=== PATIENT | female | born 1930 ===

== ENCOUNTER 2017-02-01 14:02 | Emergency (ER) | payer MEDICARE, OTHER ==
[2017-02-01 14:02] VITALS: BMI 20.1
[2017-02-01 14:16] VITALS: TEMP 98.1; O2SAT 98
--- NOTE | 2017-02-01 16:02 | ED PDOC ---
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 Patient states feels pain in throat and right sided neck x 10 days that is worse today and associated with dysphagia. Patient has also noted weight loss last 3 months ( 6lbs), unintentional. Patient denies fever, chills, headache, visual changes, recent illness, change in diet/meds, chest pain, sob, focal weakness, or palpitations. Patient states this morning POC was 260. PMD: Dr. Facundo Farias ([facility]) (Layton Matos) Supervising Attending Note <Layton Matos - Last Filed: 02/01/17 18:31> - Supervising Attending Note The Documented history was done by the: Physician Publication Editor, Attending Physician The documented physical exam was done by the: Physician Publication Editor, Attending Physician - Attestation: I have personally seen and examined this patient.: Yes I have fully participated in the care of the patient.: Yes I have reviewed all pertinent clinical information, including history, physical exam and plan: Yes <Natalie Li - Last Filed: 02/02/17 17:00> - Notes: Notes:: Throat pain, no infectious symptoms/signs. Physical exam unremarkable. CT with no findings to explain symptoms. Stable for dc with ENT f/u (Natalie Li) Past Medical History Reviewed: Historical Data, Nursing Documentation, Vital Signs - Medical History PMH: Bronchitis, COPD, CVA (w/residual left leg weakness), Diabetes (type II), Emphysema, HTN Denies: HIV, Chronic Kidney Disease - Surgical History Surgical History: Back Surgery, Cholecystectomy - Family History Family History: States: Unknown Family Hx - Social History Ex-Smoker (has not smoked in the last 12 months): Yes (70 pack years) Alcohol: None Drugs: Denies <Layton Matos - Last Filed: 02/01/17 18:31> <Natalie Li - Last Filed: 02/02/17 17:00> Vital Signs: Last Vital Signs Temp 98.1 F 02/01/17 18:31 Pulse 77 02/01/17 18:31 Resp 16 02/01/17 18:31 BP 135/62 02/01/17 18:31 Pulse Ox 98 02/01/17 18:31 - Home Medications Home Medications: Ambulatory Orders Medication Instructions Recorded Hydrochlorothiazide [HCTZ] 12.5 mg PO DAILY #0 capsule 02/18/15 Albuterol HFA [Ventolin HFA 90 1 puff IH Q6 PRN #0 puff 01/17/16 mcg/actuation (8 g)] Aspirin [Ecotrin] 81 mg PO DAILY #0 tabec 01/17/16 Insulin Detemir [Levemir] 12 unit SC BID #0 unit 01/17/16 Losartan [Cozaar] 25 mg PO DAILY #0 tab 01/17/16 Metformin HCl [Glucophage] 500 mg pe PO BID #0 tablet 01/17/16 Zolpidem [Ambien] 10 mg PO HS 10/10/16 Insulin Detemir [Levemir] 15 units SC BID #1 10/12/16 predniSONE [predniSONE Tab] 40 mg PO DAILY #7 tab 10/12/16 - Allergies Allergies/Adverse Reactions: Allergies Allergy/AdvReac Type Severity Reaction Status Date / Time No Known Allergies Allergy Verified 09/04/16 06:54 Review of Systems ROS Statement: Except As Marked, All Systems Reviewed And Found Negative ENT: Positive for: Mouth Pain, Throat Pain Respiratory: Positive for: Cough <Layton Matos - Last Filed: 02/01/17 18:31> Physical Exam - Reviewed Nursing Documentation Reviewed: Yes Vital Signs Reviewed: Yes - Physical Exam Appears: Positive for: Well, Non-toxic, Uncomfortable (due to pain) Head Exam: Positive for: ATRAUMATIC, NORMAL INSPECTION, NORMOCEPHALIC Skin: Positive for: Normal Color, Warm, Dry Eye Exam: Positive for: Normal appearance, EOMI ENT: Positive for: TM Is/Are (clear bilaterally), Pharyngeal Erythema, Other ( 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 Negative for: Tonsillar Exudate Neck: Positive for: Normal, Painless ROM, Supple Cardiovascular/Chest: Positive for: Regular Rate, Rhythm Respiratory: Positive for: Normal Breath Sounds Gastrointestinal/Abdominal: Positive for: Normal Exam, Bowel Sounds (normal), Soft. Negative for: Tenderness Back: Positive for: Normal Inspection Extremity: Positive for: Normal ROM. Negative for: Pedal Edema, Calf Tenderness Neurologic/Psych: Positive for: Alert, human resources receptionist II-XII, Oriented, Motor/Sensory Deficits (residual left side weakness 4/5) <Layton Matos - Last Filed: 02/01/17 18:31> - Laboratory Results Result Diagrams: 02/01/17 16:00 02/01/17 16:00 - ECG O2 Sat by Pulse Oximetry: 98 Pulse Ox Interpretation: Normal <Layton Matos - Last Filed: 02/01/17 18:31> - Laboratory Results Result Diagrams: 02/01/17 16:00 02/01/17 16:00 <Natalie Li - Last Filed: 02/02/17 17:00> - Progress ED Course And Treament: Time: 1540 Initial impression: 86 year old female with medical history of IDDM, HTN, ex- smoker (70 pack years) and 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 Plan: * CBC * CMP * POC GLUCOSE * RAPID STREP TEST * CT SOFT TISSUE NECK W/ CONTRAST * TORADOL 10MG IV * REEVAL Time: 1815 Patient's symptoms improved with Toradol. Labs reviewed, unremarkable. CT SOFT TISSUE NECK W/ CONTRAST Impression Unremarkable contrast enhanced CT of the neck. Will discharge patient home, patient to follow up with ENT and PMD this week without fail. (Layton Matos) Disposition - Patient ED Disposition Is Patient to be Admitted: No Counseled Patient/Family Regarding: Studies Performed, Diagnosis, Need For Followup - Disposition Disposition: Routine/Home Disposition Time: 18:19 - POA Present On Arrival: None <Layton Matos - Last Filed: 02/01/17 18:31> <Natalie Li - Last Filed: 02/02/17 17:00> - Clinical Impression Clinical Impression: Throat pain in adult - Disposition Referrals: Azael Luke MD [Staff Provider] - Ayden Farias MD [Family Provider] - Condition: STABLE Additional Instructions: Please follow up with ENT and PMD within week. If symptoms worsen, return to ED.
[2017-02-01 16:22] LABS: BASO % 0.7 % (0.0-2.0); EOS # 0.2 K/uL (0.0-0.7); EOS % 4.2 % (0.0-4.0); HEMATOCRIT 32.5 % (34.0-47.0); LYMPH # 1.4 K/uL (1.0-4.3); MEAN CELL VOLUME 78.9 fl (81.0-99.0); MEAN CORPUSCULAR HEMOGLOBIN 25.1 pg (27.0-31.0); MEAN CORPUSCULAR HGB CONC 31.8 g/dL (33.0-37.0); MEAN PLATELET VOLUME 10.5 fl (7.2-11.7); MONO # 0.5 K/uL (0.0-0.8); MONO % 9.1 % (0.0-10.0); NEUT # 3.6 K/uL (1.8-7.0); NRBC % 0.1 % (0.0-0.0); RED CELL DISTRIBUTION WIDTH 18.1 % (11.5-14.5); WHITE BLOOD COUNT 5.8 K/uL (4.8-10.8)
[2017-02-01] MEDS ORDERED: Iohexol 300 100 ML IJ ONE (16:37)
[2017-02-01] MEDS ORDERED: Sodium Chloride 0.9% 50 ML IV ONE (16:37)
[2017-02-01 16:40] LABS: ALKALINE PHOSPHATASE 116 U/L (38-126); ALT/SGPT 31 U/L (9-52); AST/SGOT 47 U/L (14-36); BILIRUBIN,TOTAL 0.6 mg/dl (0.2-1.3); BLOOD UREA NITROGEN 23 mg/dl (7-17); CALCIUM 9.6 mg/dL (8.4-10.2); CARBON DIOXIDE 28 mmol/L (22-30); CHLORIDE 105 mmol/L (98-107); GFR AFRICAN-AMERICAN > 60; GLUCOSE,RANDOM 218 mg/dL (65-105); POTASSIUM 4.9 MMOL/L (3.6-5.0); SODIUM 142 mmol/l (132-148); TOTAL PROTEIN 7.7 G/DL (6.3-8.2)
--- NOTE | 2017-02-01 17:39 | CT ---
PROCEDURE: CT NECK WITH CONTRAST HISTORY: throat pain diabetic r/o umu COMPARISON: None TECHNIQUE: CT of the neck with intravenous contrast. Coronal and sagittal reformats generated. Intravenous contrast dose: 100 cc of Omnipaque 300 Radiation dose: DLP 372 mGy-cm This CT exam was performed using one or more of the following dose reduction techniques: Automated exposure control, adjustment of the mA and/or kV according to patient size, and/or use of iterative reconstruction technique. FINDINGS: NASOPHARYNX: Unremarkable. SUPRAHYOID NECK: Unremarkable oropharynx, oral cavity, parapharyngeal space and retropharyngeal space. INFRAHYOID NECK: Unremarkable larynx, hypopharynx, and supraglottic space. Vocal cords intact. MASS: None. GLANDS: Parotid and submandibular glands unremarkable. Normal size thyroid gland, without nodule. LYMPH NODES: Normal. No lymphadenopathy. CERVICAL SPINE: No fracture or focal lesion. VASCULAR STRUCTURES: Unremarkable. OTHER FINDINGS: None. IMPRESSION: Unremarkable contrast enhanced CT of the neck.
[2017-02-01 18:32] VITALS: BP 135/62; PULSE 77; RESP 16
== END 2017-02-01 18:31 | disposition home or self-care (01) ==
LOC: H.ER 14:02
DX: R07.0 Pain in throat (principal); E11.9 Type 2 diabetes mellitus without complications; I10 Essential (primary) hypertension; Z79.4 Long term (current) use of insulin; Z86.73 Personal history of transient ischemic attack (TIA), and cerebral infarction without residual deficits; J44.9 Chronic obstructive pulmonary disease, unspecified; Z79.82 Long term (current) use of aspirin
CPT/HCPCS: 70491; 80053; 82948; 85025; 87070; 87430; 96374; 99282; J1885; Q9967

== ENCOUNTER 2017-10-02 12:33 | Emergency (ER) | payer MEDICARE, OTHER ==
[2017-10-02 12:33] VITALS: BMI 20.1
--- NOTE | 2017-10-02 13:33 | ED PDOC ---
HPI: Trauma/Fall - HPI Chief Complaint (Nursing): Hip Pain Chief Complaint (Provider): Hip Pain History Per: Patient, Other (Home Health Aide) History/Exam Limitations: no limitations Onset/Duration Of Symptoms: Days (x 2) Additional Complaint(s): 87 year old female with history of stroke (left sided residual weakeness; uses walker) and diabetes presents to the ED complaining of left hip and back pain, onset 2 days ago s/p fall. According the pt's home health aide and patient she fell two days ago and is experiencing low back pain and left hip pain. Patient states that she just missed her step. She able to walk with her walker but a lot less because of the pain. She denies any lightheadedness or dizziness. No chestpain or sob. No urinary complaints. No cough. PMD: Dr. Drew Day MD Past Medical History Reviewed: Historical Data, Nursing Documentation, Vital Signs Vital Signs: Last Vital Signs Temp 98 F 10/02/17 16:29 Pulse 78 10/02/17 16:29 Resp 18 10/02/17 16:29 BP 140/80 10/02/17 16:29 Pulse Ox 99 10/02/17 16:29 - Medical History PMH: Bronchitis, COPD, CVA (w/residual left leg weakness), Diabetes (type II), Emphysema, HTN Denies: HIV, Chronic Kidney Disease - Surgical History Surgical History: Back Surgery, Cholecystectomy - Family History Family History: States: Unknown Family Hx - Home Medications Home Medications: Ambulatory Orders Medication Instructions Recorded Albuterol HFA [Ventolin HFA 90 1 puff IH PRN PRN 10/02/17 mcg/actuation (8 g)] Aspirin [Ecotrin] 81 mg PO DAILY 10/02/17 Hydrochlorothiazide [Microzide] 12.5 mg PO DAILY 10/02/17 Ibuprofen [Motrin] 400 mg PO Q6 PRN #20 tab 10/02/17 Insulin Detemir [Levemir] 12 units SQ DAILY 10/02/17 Losartan Potassium 50 mg PO BID 10/02/17 Nifedipine [Adalat cc] 30 mg PO DAILY 10/02/17 Omeprazole Magnesium [Prilosec] 10 mg PO DAILY 10/02/17 Rosuvastatin Calcium [Crestor] 5 mg PO HS 10/02/17 Sitagliptin Phos/Metformin HCl 1 each PO BID 10/02/17 [Janumet 50-1,000 mg Tablet] Tramadol HCl [Ultram] 50 mg PO PRN PRN 10/02/17 - Allergies Allergies/Adverse Reactions: Allergies Allergy/AdvReac Type Severity Reaction Status Date / Time No Known Allergies Allergy Verified 10/02/17 12:34 Review of Systems ROS Statement: Except As Marked, All Systems Reviewed And Found Negative Musculoskeletal: Positive for: Back Pain (lower lumbar ), Other (left hip pain) Neurological: Positive for: Weakness (left sided which is chronic and not worsened) Physical Exam - Reviewed Nursing Documentation Reviewed: Yes Vital Signs Reviewed: Yes - Physical Exam Appears: Positive for: Non-toxic, No Acute Distress Head Exam: Positive for: ATRAUMATIC, NORMOCEPHALIC Skin: Positive for: Normal Color, Warm, Dry Eye Exam: Positive for: EOMI, Normal appearance, PERRL Neck: Positive for: Normal, Painless ROM, Supple Cardiovascular/Chest: Positive for: Regular Rate, Rhythm. Negative for: Murmur Respiratory: Positive for: Normal Breath Sounds. Negative for: Wheezing Gastrointestinal/Abdominal: Positive for: Normal Exam, Soft Back: Positive for: Other (left paraspinal and mid lower back tenderness) Extremity: Positive for: Other (Left sided hip tenderness with palpation and pain range of motion) Neurologic/Psych: Positive for: Alert, line patroller II-XII. Negative for: Motor/Sensory Deficits, Facial Droop - Laboratory Results Result Diagrams: 10/02/17 13:25 10/02/17 13:25 - ECG O2 Sat by Pulse Oximetry: 100 (RA) Pulse Ox Interpretation: Normal Medical Decision Making Medical Decision Making: Time: 13:01 Initial Plan: 87 yo female c/o left hip and back pain s/p fall r/o fracture --Ct head w/o contrast --Ct lumbar spine --Ct pelvis --BMP --CBC --PTT --Prothrombin time --Tylenol 975 mg PO --Finger stick Time: 14:[address] IMPRESSION: No acute intracranial abnormalities. No significant findings to account for the clinical presentation. No significant interval change compared to the prior examination(s). Time: 14:54 CT Abd Pelvis IMPRESSION: No acute findings related to/accounting for the clinical presentation. Time: 14:54 CT Lumbar Spine IMPRESSION: No acute findings related to/accounting for the clinical presentation. Additional benign and/or incidental findings described above. Limitations of the current examination: Streak artifact related to hardware from prior laminectomy and fusion L3-L5 levels. Time: 15:10 --Patient is still in pain and given Toradol. Time: 15:41 Patient is able to get up and walk with assistance from nurse and walker. Pain is improved. UA is negative for UTI. She was offered admission for physical therapy if she felt like she needed but she wants to go home. Patient has capacity to make decisions. Discussed with her PMD, Dr. Day who agreed to follow up with her promptly. She will be discharged home. [facility] is aware and she will make sure she has followup. Scribe Attestation: Documented by Montse Reno, acting as a scribe for Yobany Barber DO Provider Scribe Attestation: All medical record entries made by the Scribe were at my direction and personally dictated by me. I have reviewed the chart and agree that the record accurately reflects my personal performance of the history, physical exam, medical decision making, and the department course for this patient. I have also personally directed, reviewed, and agree with the discharge instructions and disposition. Disposition - Clinical Impression Clinical Impression: Hip pain, Contusion of hip, Fall - Patient ED Disposition Is Patient to be Admitted: No - Disposition Referrals: Drew Day MD [Family Provider] - Disposition: Routine/Home Disposition Time: 15:40 Condition: IMPROVED Additional Instructions: Ms Flores, thank you for letting us take care of you today. Your provider was Dr. Barber. You were treated for Mechanical Fall, Hip Contusion, Back Pain. The emergency medical care you received today was directed at your acute symptoms. If you were prescribed any medication, please fill it and take as directed. It may take several days for your symptoms to resolve. Return to the Emergency Department if your symptoms worsen, do not improve, or if you have any other problems. Please contact your doctor or call one of the physicians/clinics you have been referred to that are listed on the Patient Visit Information form that is included in your discharge packet. Bring any paperwork you were given at discharge with you along with any medications you are taking to your follow up visit. Our treatment cannot replace ongoing medical care by a primary care provider (PCP) outside of the emergency department. Thank you for allowing the [facility] team to be part of your care today. If you had an X-Ray or CT scan: A Radiologist will review the ED reading if any change in treatment is needed we will contact you. If you had a blood, urine, or wound culture: It will take several days for the results, if any change in treatment is needed we will contact you. If you had an STI test: It will take 48 hours for the results. Please call after 1 week if you have not heard back. Prescriptions: Ibuprofen [Motrin] 400 mg PO Q6 PRN #20 tab PRN Reason: Pain, Mild (1-3) Instructions: Fall Prevention for Older Adults (ED), Back Pain (ED), Hip Contusion (ED) Forms: [employer] (Swiss) Print Language: HONG KONGER
[2017-10-02 13:41] LABS: HEMOGLOBIN 10.6 g/dL (12.0-16.0); MEAN CELL VOLUME 77.3 fl (81.0-99.0); MEAN CORPUSCULAR HEMOGLOBIN 24.3 pg (27.0-31.0); MEAN CORPUSCULAR HGB CONC 31.4 g/dL (33.0-37.0); RBC 4.35 Mil/uL (3.80-5.20); RED CELL DISTRIBUTION WIDTH 17.7 % (11.5-14.5); WHITE BLOOD COUNT 6.2 K/uL (4.8-10.8)
[2017-10-02 13:55] LABS: BLOOD UREA NITROGEN 12 mg/dl (7-17); CALCIUM 9.5 mg/dL (8.4-10.2); GFR AFRICAN-AMERICAN > 60; GFR NON-AFRICAN AMERICAN > 60
[2017-10-02 14:26] LABS: INR 1.1 (0.9-1.2); PROTHROMBIN TIME 11.7 Seconds (9.8-13.1)
--- NOTE | 2017-10-02 14:49 | CT ---
PROCEDURE: CT HEAD WITHOUT CONTRAST. HISTORY: fall r/o ich COMPARISON: 10/10/2016 TECHNIQUE: Axial computed tomography images were obtained through the head/brain without intravenous contrast. Radiation dose: Total exam DLP = 770.03 mGy-cm. This CT exam was performed using one or more of the following dose reduction techniques: Automated exposure control, adjustment of the mA and/or kV according to patient size, and/or use of iterative reconstruction technique. FINDINGS: HEMORRHAGE: No intracranial hemorrhage. BRAIN: No mass effect or edema. Age related senescent change VENTRICLES: Unremarkable. No hydrocephalus. CALVARIUM: Unremarkable. PARANASAL SINUSES: Unremarkable as visualized. No significant inflammatory changes. MASTOID AIR CELLS: Unremarkable as visualized. No inflammatory changes. OTHER FINDINGS: None. IMPRESSION: No acute intracranial abnormalities. No significant findings to account for the clinical presentation. No significant interval change compared to the prior examination(s).
--- NOTE | 2017-10-02 14:53 | CT ---
PROCEDURE: CT Lumbar Spine without contrast HISTORY: fall with back pain r/o fx COMPARISON: None. TECHNIQUE: Axial computed tomography images were obtained of the lumbar spine without the use of intravenous contrast. Coronal and sagittal reformatted images were created and reviewed. 3D volume rendering in multiple orientations. Radiation dose: Total exam DLP = sign mGy-cm. This CT exam was performed using one or more of the following dose reduction techniques: Automated exposure control, adjustment of the mA and/or kV according to patient size, and/or use of iterative reconstruction technique. FINDINGS: VERTEBRAE: No acute fracture identified. No evidence of orthopedic hardware failure. This includes interpedicular screws and rods related to prior laminectomy and fusion. Limitations of the current examination: Artifact related to metallic hardware. DISCS/SPINAL CANAL/NEURAL FORAMINA: L1-2: Unremarkable. L2-3: Degenerative changes primarily disc space narrowing and vacuum disc phenomenon. L3-4: Incompletely visualized postoperative changes related to fusion. L4-5: Degenerative changes and postoperative findings L5-S1: Unremarkable. PARASPINAL SOFT TISSUES: No acute findings. OTHER FINDINGS: None. IMPRESSION: No acute findings related to/accounting for the clinical presentation. Additional benign and/or incidental findings described above. Limitations of the current examination: Streak artifact related to hardware from prior laminectomy and fusion L3-L5 levels.
--- NOTE | 2017-10-02 14:56 | CT ---
PROCEDURE: CT Pelvis without contrast HISTORY: fall with left hip pain r/o fx COMPARISON: None. TECHNIQUE: Contiguous axial images of the pelvis . No intravenous or oral contrast given. Coronal and sagittal reformats generated. 3D volume rendering in multiple orientations. Radiation dose: Total exam DLP = 148.02 mGy-cm. This CT exam was performed using one or more of the following dose reduction techniques: Automated exposure control, adjustment of the mA and/or kV according to patient size, and/or use of iterative reconstruction technique. FINDINGS: BLADDER: Unremarkable. No mass. REPRODUCTIVE ORGANS: Prior hysterectomy VISUALIZED BOWEL: Constipation without fecal impaction or obstruction. PERITONEUM: Unremarkable, as visualized. No free fluid. No free air. LYMPH NODES: Unremarkable. No enlarged lymph nodes. BONES: Diffuse osteopenia. Degenerative changes both hips which are moderate and approximately symmetrical. VASCULATURE: Unremarkable. OTHER FINDINGS: None. IMPRESSION: No acute findings related to/accounting for the clinical presentation.
[2017-10-02 16:29] VITALS: BP 140/80; PULSE 78; RESP 18; TEMP 98
[2017-10-02 16:50] VITALS: O2SAT 100
== END 2017-10-02 16:32 | disposition home or self-care (01) ==
LOC: H.ER 12:33
DX: S70.02XA Contusion of left hip, initial encounter (principal); W19.XXXA Unspecified fall, initial encounter; Y92.89 Other specified places as the place of occurrence of the external cause; E11.9 Type 2 diabetes mellitus without complications; I10 Essential (primary) hypertension; J44.9 Chronic obstructive pulmonary disease, unspecified; Z79.4 Long term (current) use of insulin; Z79.82 Long term (current) use of aspirin; Z86.73 Personal history of transient ischemic attack (TIA), and cerebral infarction without residual deficits
CPT/HCPCS: 70450; 72131; 72192; 80048; 82948; 85027; 85610; 85730; 96374; 99284; J1885

== ENCOUNTER 2018-06-18 13:59 | Observation (INO) | payer MEDICARE, OTHER ==
[2018-06-18 14:00] VITALS: BMI 20.1
[2018-06-18] MEDS ORDERED: Albuterol-Ipratrop 3 mg / 0.5 (3 ml) UD INH STA ×2 (14:58→17:16)
--- NOTE | 2018-06-18 15:05 | ED PDOC ---
HPI: SOB/CHF/COPD Time Seen by Provider: 06/18/18 14:24 Chief Complaint (Nursing): Shortness Of Breath Chief Complaint (Provider): cough SOB History Per: Patient History/Exam Limitations: no limitations Onset/Duration Of Symptoms: Days (4), Gradual Current Symptoms Are (Timing): Still Present Initiating Event: Upper Respiratory Illness Quality: Tightness Exacerbating Factor(s): Exertion Current Respiratory Medications: Albuterol Severity: Moderate Associated Symptoms: Productive Cough, Heart Racing, Dizziness. denies: Fever, Chills Additional Complaint(s): 87yo female presents c/o SOB, cough, malaise ongoing for several days. Denies hemoptysis, leg swelling, falls or fever. Using albuterol at home with minimal relief. PMD Shay Past Medical History Vital Signs: Last Vital Signs Temp 98.9 F 06/18/18 19:33 Pulse 94 H 06/18/18 19:33 Resp 18 06/18/18 19:33 BP 163/88 H 06/18/18 19:33 Pulse Ox 96 06/18/18 19:33 - Medical History PMH: Bronchitis, COPD, CVA (w/residual left leg weakness), Diabetes (type II), Emphysema, HTN Denies: HIV, Chronic Kidney Disease - Surgical History Surgical History: Back Surgery, Cholecystectomy - Family History Family History: States: Unknown Family Hx - Living Arrangements Living Arrangements: Alone - Social History Current smoker - smoking cessation education provided: No - Home Medications Home Medications: Ambulatory Orders Medication Instructions Recorded Albuterol HFA [Ventolin HFA 90 2 puff IH Q6 PRN 10/02/17 mcg/actuation (8 g)] Aspirin [Ecotrin] 81 mg PO DAILY 10/02/17 Insulin Detemir [Levemir] 10 units SQ DAILY 10/02/17 Losartan Potassium 50 mg PO DAILY 10/02/17 Rosuvastatin Calcium [Crestor] 5 mg PO HS 10/02/17 Sitagliptin Phos/Metformin HCl 1 tab PO BID 10/02/17 [Janumet 50-1,000 mg Tablet] Docusate [Colace] 100 mg PO BID 06/18/18 Meloxicam [Mobic] 7.5 mg PO DAILY PRN 06/18/18 Omeprazole [Omeprazole] 20 mg PO DAILY 06/18/18 Pioglitazone [Actos] 30 mg PO DAILY 06/18/18 Zolpidem [Ambien] 10 mg PO HS 06/18/18 - Allergies Allergies/Adverse Reactions: Allergies Allergy/AdvReac Type Severity Reaction Status Date / Time No Known Allergies Allergy Verified 06/18/18 14:13 Review of Systems Constitutional: Positive for: Weakness, Malaise. Negative for: Fever ENT: Negative for: Ear Pain, Throat Pain Cardiovascular: Positive for: Palpitations, Orthopnea Respiratory: Positive for: Cough, Shortness of Breath, SOB with Exertion, Sputum , Wheezing Gastrointestinal: Negative for: Abdominal Pain Genitourinary Female: Negative for: Dysuria Musculoskeletal: Positive for: Back Pain. Negative for: Neck Pain Skin: Negative for: Rash, Lesions Neurological: Positive for: Dizziness. Negative for: Weakness Physical Exam - Physical Exam Appears: Positive for: Non-toxic (elderly, dyspneic), No Acute Distress Head Exam: Positive for: ATRAUMATIC, NORMAL INSPECTION, NORMOCEPHALIC Skin: Positive for: Normal Color, Warm, DRY Eye Exam: Positive for: EOMI, Normal appearance, PERRL ENT: Positive for: Normal ENT Inspection Neck: Positive for: Normal, Painless ROM Cardiovascular/Chest: Positive for: Regular Rate, Rhythm Respiratory: Positive for: Decreased Breath Sounds, Wheezing Gastrointestinal/Abdominal: Positive for: Soft. Negative for: Tenderness Back: Positive for: Normal Inspection Extremity: Positive for: Normal ROM Neurologic/Psych: Positive for: Alert, Oriented. Negative for: Motor/Sensory Deficits - Laboratory Results Result Diagrams: 06/18/18 16:12 06/18/18 16:12 - ECG O2 Sat by Pulse Oximetry: 95 Medical Decision Making Medical Decision Making: workup for dyspnea initiated labs and CXR reviewed multiple duonebs given, solumedrol, remains w diminished BS and dyspnea Azithromycin initiated given productive cough and dyspnea Admit obs dr soto, dr ordoñez PMD made aware Disposition - Clinical Impression Clinical Impression: Chr obstructive pulmonary disease w/ acute lower respiratory infxn - Patient ED Disposition Is Patient to be Admitted: Yes - Disposition Disposition Time: 17:40 Condition: FAIR - Pt Status Changed To: Hospital Disposition Of: Observation - POA Present On Arrival: None
[2018-06-18] MEDS ORDERED: MethylPREDNISolone 40 mg Vial ONE (16:12)
[2018-06-18] MEDS ORDERED: Albuterol-Ipratrop 3 mg / 0.5 (3 ml) UD ONE ×2 (16:13→18:08)
--- NOTE | 2018-06-18 16:15 | RAD ---
HISTORY: Cough and shortness of breath COMPARISON: 08/22/2016. TECHNIQUE: Chest PA and lateral FINDINGS: LINES AND TUBES: None. LUNG AND PLEURA: The lungs are hyperinflated and there is peribronchial thickening with chronic changes in both lungs. No lobar pneumonia. No pleural effusion or pneumothorax. HEART AND MEDIASTINUM: The heart is not enlarged. There is unfolding of the aorta. Atherosclerotic aortic arch calcifications are present. The hilar and mediastinal contours are within normal limits. SKELETAL STRUCTURES: The bony structures are within normal limits for the patient's age. VISUALIZED UPPER ABDOMEN: Normal. OTHER FINDINGS: None. IMPRESSION: No active pulmonary disease. COPD.
[2018-06-18 16:34] LABS: BASO % 0.2 % (0.0-2.0); EOS # 0.2 K/uL (0.0-0.7); EOS % 2.9 % (0.0-4.0); HEMOGLOBIN 10.6 g/dL (12.0-16.0); LYMPH # 1.2 K/uL (1.0-4.3); LYMPH % 17.4 % (20.0-40.0); MEAN CELL VOLUME 78.1 fl (81.0-99.0); MEAN CORPUSCULAR HEMOGLOBIN 24.5 pg (27.0-31.0); MEAN CORPUSCULAR HGB CONC 31.4 g/dL (33.0-37.0); MEAN PLATELET VOLUME 9.6 fl (7.2-11.7); MONO # 0.5 K/uL (0.0-0.8); NEUT # 4.8 K/uL (1.8-7.0); NEUT % 71.5 % (50.0-75.0); NRBC % 0.1 % (0.0-0.0); RBC 4.33 Mil/uL (3.80-5.20); RED CELL DISTRIBUTION WIDTH 18.7 % (11.5-14.5); WHITE BLOOD COUNT 6.7 K/uL (4.8-10.8)
[2018-06-18 17:10] LABS: ALBUMIN 4.2 g/dL (3.5-5.0); ALT/SGPT 13 U/L (9-52); AST/SGOT 28 U/L (14-36); BLOOD UREA NITROGEN 20 mg/dl (7-17); GFR NON-AFRICAN AMERICAN 52
[2018-06-18] MEDS ORDERED: Azithromycin 500 MG in Sodium Chloride 0.9% 250 ML IVPB STA (17:18)
[2018-06-18 17:19] LABS: B-TYPE NATRIURETIC PEPTIDE 779 pg/ml (0-900)
[2018-06-18 17:32] LABS: URINE BACTERIA OCC (<OCC); URINE BILIRUBIN NEGATIVE (NEGATIVE); URINE BLOOD SMALL (NEGATIVE); URINE CLARITY CLEAR (Clear); URINE COLOR STRAW (YELLOW); URINE GLUCOSE (UA) NEG (Normal); URINE LEUKOCYTE ESTERASE NEG Leu/uL (Negative); URINE PROTEIN 100 mg/dL (NEGATIVE); URINE UROBILINOGEN 0.2-1.0 mg/dL (0.2-1.0)
[2018-06-18 17:38] LABS: SQUAMOUS EPITHIAL 4 /hpf (0-5)
[2018-06-18] MEDS ORDERED: Azithromycin 500 MG IV IVPB ONE (18:08)
--- NOTE | 2018-06-18 18:27 | CP.PCM.HP ---
History of Present Illness - History of Present Illness History of Present Illness: CC: Cough, dyspnea HPI: 87 y/o woman w/ pmh of HTN, DM2, COPD (emphysema), Hx CVA (residual left leg weakness) presents to the ED w/ dyspnea and cough. Patient reports cough for the past 3-4 days, productive of white sputum, about 1/2 cup of white sputum. Patient reports dyspnea this morning at rest which she attributes to nausea. Patient denies headaches, chest pain, hemoptysis, vomiting, diarrhea, or fever. Patient reports chronic GERD relieved w/ PPI. Patient has home health aid 7 days a week for 5 hours a day. Patient's emergency contact is [facility]. ED course: vitals: 98F, 84 beats/min, 162/72 mm Hg, resp 20, O2 95% room air CBC: 6.7>10.6/33.8<247 CMP: 139/4.7, 103/30, 20/1.0, glucose 151, AST 28, ALT 13, alk phos 84 troponin: 0.0200 Pro-BNP: 779 CXR: COPD, emphysema. No active pulmonary disease duoneb x2 solu-medrol 60 mg IV azithromycin 500 mg IV PMD: Dr. Day PMH: HTN, DM2, COPD (emphysema), Hx CVA (residual left leg weakness) meds: Janumet 50-1000 mg PO BID, pioglitazone 30 mg PO daily, losartan 50 mg PO daily, ASA 81 mg PO daily, colace 100 mg PO daily, omeprazole 20 mg PO daily, meloxicam 7.5 mg PO prn, ventolin PSH: cholecystectomy, 1/2 left ovary removed in childhood Fam: non-contributory SOC: former smoker, quit 7 months ago, smoked 1/2 pack to 1 pack per day for 70 years; denies alcohol and drugs ROS: 12 points assessed and negative unless otherwise reported in HPI Present on Admission - Present on Admission Any Indicators Present on Admission: Yes History of DVT/PE: No History of Uncontrolled Diabetes: Yes Urinary Catheter: No Decubitus Ulcer Present: No Review of Systems - Review of Systems All systems: reviewed and no additional remarkable complaints except - Constitutional Constitutional: absent: Chills, Fever, Headache - EENT Eyes: absent: Change in Vision - Cardiovascular Cardiovascular: absent: Chest Pain - Respiratory Respiratory: As Per HPI, Cough, Dyspnea, Excessive Mucous Production. absent: Hemoptysis, Wheezing - Gastrointestinal Gastrointestinal: Nausea. absent: Abdominal Pain, Diarrhea, Vomiting - Genitourinary Genitourinary: absent: Dysuria - Reproductive: Female Reproductive:Female: Post Menopausal - Menstruation Menstruation: Post Menopausal - Integumentary Integumentary: absent: Rash Past Patient History - Tetanus Immunizations Tetanus Immunization: Unknown - Past Medical History & Family History Past Medical History?: Yes - Past Social History Smoking Status: Former Smoker - CARDIAC Hx Hypertension: Yes - PULMONARY Hx Bronchitis: Yes Hx Chronic Obstructive Pulmonary Disease (COPD): Yes Hx Pneumonia: Yes - NEUROLOGICAL Hx Neurological Disorder: Yes HX Cerebrovascular Accident: Yes (RESIDUAL L SIDED WEAKNESS) - HEENT Hx Cataracts: Yes - RENAL Hx Chronic Kidney Disease: No - ENDOCRINE/METABOLIC Hx Endocrine Disorders: Yes Hx Diabetes Mellitus Type 2: Yes - HEMATOLOGICAL/ONCOLOGICAL Hx Blood Disorders: No - INTEGUMENTARY Hx Dermatological Problems: No - MUSCULOSKELETAL/RHEUMATOLOGICAL Hx Musculoskeletal Disorders: Yes Hx Falls: Yes - GASTROINTESTINAL Hx Gastrointestinal Disorders: No - GENITOURINARY/GYNECOLOGICAL Hx Genitourinary Disorders: No - PSYCHIATRIC Hx Psychophysiologic Disorder: No Hx Substance Use: No - SURGICAL HISTORY Hx Appendectomy: Yes Hx Cholecystectomy: Yes - ANESTHESIA Hx Anesthesia: Yes Hx Anesthesia Reactions: No Hx Malignant Hyperthermia: No Meds Allergies/Adverse Reactions: Allergies Allergy/AdvReac Type Severity Reaction Status Date / Time No Known Allergies Allergy Verified 06/18/18 14:13 Physical Exam - Constitutional Appears: Non-toxic, No Acute Distress - Head Exam Head Exam: ATRAUMATIC, NORMAL INSPECTION, NORMOCEPHALIC - Eye Exam Eye Exam: Normal appearance - ENT Exam ENT Exam: Mucous Membranes Moist - Neck Exam Neck exam: Positive for: Full Rom. Negative for: Tenderness - Respiratory Exam Respiratory Exam: Decreased Breath Sounds. absent: Rales, Rhonchi, Wheezes, Respiratory Distress - Cardiovascular Exam Cardiovascular Exam: REGULAR RHYTHM, RRR, +S1, +S2. absent: Tachycardia - GI/Abdominal Exam GI & Abdominal Exam: Normal Bowel Sounds, Soft, Tenderness (epigastric). absent : Distended - Extremities Exam Extremities exam: Positive for: normal inspection. Negative for: calf tenderness, pedal edema, tenderness - Neurological Exam Neurological exam: Alert, Oriented x3 - Skin Skin Exam: Dry, Intact, Normal Color, Warm Results - Vital Signs Recent Vital Signs: Last Vital Signs Temp 98 F 06/18/18 14:10 Pulse 84 06/18/18 14:10 Resp 20 06/18/18 15:37 BP 162/72 H 06/18/18 14:10 Pulse Ox 95 06/18/18 15:05 - Labs Result Diagrams: 06/18/18 16:12 06/18/18 16:12 Labs: Laboratory Results - last 24 hr 06/18/18 06/18/18 06/18/18 16:12 16:12 17:18 WBC 6.7 RBC 4.33 Hgb 10.6 L Hct 33.8 L MCV 78.1 L MCH 24.5 L MCHC 31.4 L RDW 18.7 H Plt Count 247 MPV 9.6 Neut % (Auto) 71.5 Lymph % (Auto) 17.4 L [place] % (Auto) 8.0 Eos % (Auto) 2.9 Baso % (Auto) 0.2 Neut # (Auto) 4.8 Lymph # (Auto) 1.2 [place] # (Auto) 0.5 Eos # (Auto) 0.2 Baso # (Auto) 0.0 Sodium 139 Potassium 4.7 Chloride 103 Carbon Dioxide 30 Anion Gap 11 BUN 20 H Creatinine 1.0 Est GFR ( Amer) > 60 Est GFR (Non-Af Amer) 52 Random Glucose 151 H Calcium 10.0 Total Bilirubin 0.3 AST 28 ALT 13 Alkaline Phosphatase 84 Troponin I 0.0200 NT-Pro-B Natriuret Pep 779 Total Protein 8.2 Albumin 4.2 Globulin 4.0 H Albumin/Globulin Ratio 1.0 Urine Color Straw Urine Clarity Clear Urine pH 6.0 Ur Specific [place] 1.008 Urine Protein 100 Urine Glucose (UA) Neg Urine Ketones Negative Urine Blood Small Urine Nitrate Negative Urine Bilirubin Negative Urine Urobilinogen 0.2-1.0 Ur Leukocyte Esterase Neg Urine RBC (Auto) 5 H Urine Microscopic WBC 2 Ur Squamous Epith Cells 4 Urine Bacteria Occ H Assessment & Plan (1) COPD exacerbation Status: Acute (2) Diabetes mellitus Status: Chronic (3) HTN (hypertension) Status: Chronic (4) GERD (gastroesophageal reflux disease) Status: Chronic - Assessment and Plan (Free Text) Assessment: 87 y/o woman w/ pmh of HTN, DM2, COPD (emphysema), Hx CVA (residual left leg weakness) presents to the ED w/ dyspnea and cough Plan: COPD exacerbation - possible acute bronchitis due to sputum production - patient reports marked improvement - vitals signs stable, 98F, 84 beats/min, 162/72 mm Hg, resp 20, O2 95% room air - CBC: 6.7>10.6/33.8<247 - CMP: 139/4.7, 103/30, 20/1.0, glucose 151, AST 28, ALT 13, alk phos 84 - troponin: 0.0200 - Pro-BNP: 779 - CXR: COPD, emphysema. No active pulmonary disease - duoneb x2 - solu-medrol 60 mg IV - azithromycin 500 mg IV - f/u CBC, CMP - duoneb Q4h prn - c/w venotlin prn - monitor for acute changes - admit to [facility] DM2 - last HbA1c 8.9% (10/16/2016) - c/w levemir 10 units SC HS, yasminet, actos - insulin correction scale - hypoglycemic protocol HTN - mildly elevated BP - c/w losartan, ASA GERD - chronic - protonix 20 mg PO daily Prophylactic measures - DVT: lovenox 40 mg SC daily
[2018-06-18] MEDS ORDERED: Albuterol HFA 90 mcg/actuation (8 g) IH PRN (18:30)
[2018-06-18] MEDS ORDERED: Glucagon Recombinant 1 mg Inj IM PRN (18:34)
[2018-06-18] MEDS ORDERED: Dextrose 50% SYRINGE Inj (50 ml) IV PRN (18:34)
[2018-06-18] MEDS ORDERED: Albuterol-Ipratrop 3 mg / 0.5 (3 ml) UD INH PRN (18:43)
[2018-06-18] MEDS ORDERED: Insulin Detemir 100 Units/ml Inj SC SCH (22:00)
[2018-06-18] MEDS: Insulin Lispro (humaLOG) 100 Units/ml Inj SC SCH (22:16)
[2018-06-18 23:52] VITALS: TEMP 98.7
[2018-06-19 07:05] LABS: BASO % 0.2 % (0.0-2.0); EOS % 0.1 % (0.0-4.0); HEMOGLOBIN 9.3 g/dL (12.0-16.0); LYMPH # 1.2 K/uL (1.0-4.3); LYMPH % 19.7 % (20.0-40.0); MEAN CORPUSCULAR HEMOGLOBIN 25.1 pg (27.0-31.0); MEAN CORPUSCULAR HGB CONC 32.5 g/dL (33.0-37.0); MEAN PLATELET VOLUME 9.6 fl (7.2-11.7); MONO # 0.5 K/uL (0.0-0.8); NEUT # 4.2 K/uL (1.8-7.0); RBC 3.73 Mil/uL (3.80-5.20); RED CELL DISTRIBUTION WIDTH 18.6 % (11.5-14.5)
[2018-06-19] MEDS: Insulin Lispro (humaLOG) 100 Units/ml Inj SC SCH ×2 (07:11→12:13)
[2018-06-19 07:27] LABS: ALBUMIN 3.7 g/dL (3.5-5.0); ALT/SGPT 26 U/L (9-52); AST/SGOT 21 U/L (14-36); BLOOD UREA NITROGEN 23 mg/dl (7-17); CALCIUM 9.8 mg/dL (8.4-10.2); GFR NON-AFRICAN AMERICAN 59
--- NOTE | 2018-06-19 07:56 | CARD ---
APPROVED REPORT Date of service: 06/18/2018 EKG Measurement Heart [id number] <Conclusion> Sinus rhythm with premature atrial complexes Otherwise normal ECG
[2018-06-19] MEDS ORDERED: Pantoprazole 20 mg EC Tab PO SCH (09:00)
[2018-06-19] MEDS ORDERED: Enoxaparin 40 mg Syringe SC SCH (09:00)
[2018-06-19] MEDS ORDERED: Patient's Own Med (Sitagliptin Phos/Metformin Hcl [Janumet 50-1,000 Mg Tablet] 1 TAB) PO SCH (09:00)
[2018-06-19] MEDS ORDERED: Azithromycin 250 MG in Sodium Chloride 0.9% 250 ML IVPB SCH (09:00)
--- NOTE | 2018-06-19 11:18 | CP.PCM.DIS ---
Provider - Provider Date of Admission: 06/18/18 17:24 Attending physician: Rosie Toledo MD Primary care physician: Drew Dya MD Time Spent in preparation of Discharge (in minutes): 30 Diagnosis - Discharge Diagnosis (1) COPD exacerbation Status: Acute Comment: Improved after hosp treatment. To c/w home meds and f/u as outpatient with PMD (2) Anemia Status: Chronic Comment: Stable. Chronic iron deficiency anemia. Iron PO and Colonoscopy as outpatient (3) HTN (hypertension) Status: Chronic Comment: Slightly uncontrolled. Will increase Losartan to 100mg daily and patient has to f/u with PMD for monitoring BP (4) Diabetes mellitus Status: Chronic Comment: Stable. C/w home meds Hospital Course - Lab Results Lab Results: Most Recent Lab Values WBC 6.0 K/uL (4.8-10.8) 06/19/18 06:25 RBC 3.73 Mil/uL (3.80-5.20) L 06/19/18 06:25 Hgb 9.3 g/dL (12.0-16.0) L 06/19/18 06:25 Hct 28.7 % (34.0-47.0) L 06/19/18 06:25 MCV 77.0 fl (81.0-99.0) L 06/19/18 06:25 MCH 25.1 pg (27.0-31.0) L 06/19/18 06:25 MCHC 32.5 g/dL (33.0-37.0) L 06/19/18 06:25 RDW 18.6 % (11.5-14.5) H 06/19/18 06:25 Plt Count 224 K/uL (130-400) 06/19/18 06:25 MPV 9.6 fl (7.2-11.7) 06/19/18 06:25 Neut % (Auto) 71.0 % (50.0-75.0) 06/19/18 06:25 Lymph % (Auto) 19.7 % (20.0-40.0) L 06/19/18 06:25 [place] % (Auto) 9.0 % (0.0-10.0) 06/19/18 06:25 Eos % (Auto) 0.1 % (0.0-4.0) 06/19/18 06:25 Baso % (Auto) 0.2 % (0.0-2.0) 06/19/18 06:25 Neut # (Auto) 4.2 K/uL (1.8-7.0) 06/19/18 06:25 Lymph # (Auto) 1.2 K/uL (1.0-4.3) 06/19/18 06:25 [place] # (Auto) 0.5 K/uL (0.0-0.8) 06/19/18 06:25 Eos # (Auto) 0.0 K/uL (0.0-0.7) 06/19/18 06:25 Baso # (Auto) 0.0 K/uL (0.0-0.2) 06/19/18 06:25 Sodium 140 mmol/l (132-148) 06/19/18 06:25 Potassium 4.8 MMOL/L (3.6-5.0) 06/19/18 06:25 Chloride 106 mmol/L (98-107) 06/19/18 06:25 Carbon Dioxide 29 mmol/L (22-30) 06/19/18 06:25 Anion Gap 10 (10-20) 06/19/18 06:25 BUN 23 mg/dl (7-17) H 06/19/18 06:25 Creatinine 0.9 mg/dl (0.7-1.2) 06/19/18 06:25 Est GFR ( Amer) > 60 06/19/18 06:25 Est GFR (Non-Af Amer) 59 06/19/18 06:25 POC Glucose (mg/dL) 121 mg/dL (65-110) H 06/19/18 11:02 Random Glucose 121 mg/dL (65-105) H 06/19/18 06:25 Calcium 9.8 mg/dL (8.4-10.2) 06/19/18 06:25 Total Bilirubin 0.2 mg/dl (0.2-1.3) 06/19/18 06:25 AST 21 U/L (14-36) 06/19/18 06:25 ALT 26 U/L (9-52) 06/19/18 06:25 Alkaline Phosphatase 70 U/L (38-126) 09/20/18 06:25 Troponin I 0.0200 ng/mL (0.00-0.120) 06/18/18 16:12 NT-Pro-B Natriuret Pep 779 pg/ml (0-900) 06/18/18 16:12 Total Protein 7.4 G/DL (6.3-8.2) 06/19/18 06:25 Albumin 3.7 g/dL (3.5-5.0) 06/19/18 06:25 Globulin 3.7 gm/dL (2.2-3.9) 06/19/18 06:25 Albumin/Globulin Ratio 1.0 (1.0-2.1) 06/19/18 06:25 Urine Color Straw (YELLOW) 06/18/18 17:18 Urine Clarity Clear (Clear) 06/18/18 17:18 Urine pH 6.0 (5.0-8.0) 06/18/18 17:18 Ur Specific [place] 1.008 (1.003-1.030) 06/18/18 17:18 Urine Protein 100 mg/dL (NEGATIVE) 06/18/18 17:18 Urine Glucose (UA) Neg mg/dL (Normal) 06/18/18 17:18 Urine Ketones Negative mg/dL (NEGATIVE) 06/18/18 17:18 Urine Blood Small (NEGATIVE) 06/18/18 17:18 Urine Nitrate Negative (NEGATIVE) 06/18/18 17:18 Urine Bilirubin Negative (NEGATIVE) 06/18/18 17:18 Urine Urobilinogen 0.2-1.0 mg/dL (0.2-1.0) 06/18/18 17:18 Ur Leukocyte Esterase Neg [place]/uL (Negative) 06/18/18 17:18 Urine RBC (Auto) 5 /hpf (0-3) H 06/18/18 17:18 Urine Microscopic WBC 2 /hpf (0-5) 06/18/18 17:18 Ur Squamous Epith Cells 4 /hpf (0-5) 06/18/18 17:18 Urine Bacteria Occ (<OCC) H 06/18/18 17:18 - Hospital Course Hospital Course: 87 y/o F with Hx of T2D, HTN and COPD presented c/o worsening SOB to ED and was admitted overnight for obs with diagnosis of COPD exacerbation. Patient feeling well this morning. Denies SOB, CP, palpitations, has no complains today. Patient is stable clinically to be discharge home and f/u as outpatient for management of COPD, DM, HTN and chronic microcitic anemia with possible Colonoscopy. To be discharge on iron PO Discharge Exam - Head Exam Head Exam: ATRAUMATIC, NORMAL INSPECTION, NORMOCEPHALIC - Eye Exam Eye Exam: EOMI Pupil Exam: PERRL - Respiratory Exam Respiratory Exam: NORMAL BREATHING PATTERN, UNREMARKABLE. absent: Rales, Wheezes - Cardiovascular Exam Cardiovascular Exam: REGULAR RHYTHM, RRR, +S1, +S2 - GI/Abdominal Exam GI & Abdominal Exam: Normal Bowel Sounds, Unremarkable. absent: Distended, Guarding - Neurological Exam Neurological exam: Alert, CN II-XII Intact, Oriented x3 - Skin Skin Exam: Pallor (mild), Warm Discharge Plan - Discharge Medications Prescriptions: Ferrous Sulfate 325 mg PO DAILY #30 tablet Losartan Potassium 100 mg PO DAILY #30 tablet - Follow Up Plan Condition: STABLE Disposition: HOME/ ROUTINE Patient education suggested?: Yes Instructions: Acute Bronchitis, Adult (DC), Exacerbation of COPD (DC) Additional Instructions: F/U with your PMD as outpatient within 1 week Take meds as prescribed Return to hospital if any worsening SOB, CP or any other concerns that you may have. Referrals: Drew Day MD [Primary Care Provider] -
[2018-06-19 11:31] VITALS: BP 161/67; PULSE 83; RESP 17; O2SAT 98
== END 2018-06-19 12:42 | disposition home health service (06) ==
LOC: H.ER 13:59 → H.ERHOLD 17:24 → H.MEDSURG1 20:15
PROVIDERS: ADMIT Hospitalist; ATTEND Hospitalist
DX: J44.1 Chronic obstructive pulmonary disease with (acute) exacerbation (principal); I10 Essential (primary) hypertension; K21.9 Gastro-esophageal reflux disease without esophagitis; Z87.891 Personal history of nicotine dependence; E11.9 Type 2 diabetes mellitus without complications; D50.9 Iron deficiency anemia, unspecified; I69.344 Monoplegia of lower limb following cerebral infarction affecting left non-dominant side
CPT/HCPCS: 36415; 71046; 80053; 81003; 82948; 83880; 84484; 85025; 87040; 93005; 96365; 96372; 96375; 99283; G0378; J0456; J1650; J2930

== ENCOUNTER 2018-09-30 23:58 | Inpatient (IN) | payer MEDICARE, OTHER ==
[2018-09-30 23:58] VITALS: BMI 20.1
--- NOTE | 2018-10-01 02:36 | ED PDOC ---
HPI: Trauma/Fall - HPI Time Seen by Provider: 10/01/18 00:30 Chief Complaint (Nursing): Trauma Chief Complaint (Provider): Trauma Additional Complaint(s): Susu Flores is a 88 year old female with a past medical history of diabetes, HTN, COPD, GERD, and chronic backpain, who presents to the emergency department complaining of left hip and back pain after sustaining a fall. Patient states she felt as though her legs gave out from underneath her. She reports that she lives alone and has an aide during the day. Patient further states that today medilert contacted 911 for her after her fall. She says that she did hit her head but denies any LOC and was on the floor for about x30-60 minutes. PMD: Drew Day Past Medical History Reviewed: Historical Data, Nursing Documentation, Vital Signs Vital Signs: Last Vital Signs Temp 97.8 F 10/01/18 00:00 Pulse 100 H 10/01/18 00:00 Resp 18 10/01/18 00:00 BP 167/84 H 10/01/18 00:00 Pulse Ox 99 10/01/18 00:00 - Medical History PMH: Anemia, Back Problems, Bronchitis, COPD, CVA (w/residual left leg weakness), Diabetes (type II), Emphysema, HTN, Hyperlipidemia, Pancreatitis, Pneumonia Denies: HIV, Chronic Kidney Disease - Surgical History Surgical History: Appendectomy, Back Surgery (multiple back surgeries), Cholecystectomy - Family History Family History: States: Unknown Family Hx - Social History Current smoker - smoking cessation education provided: Yes (occasional ) - Home Medications Home Medications: Ambulatory Orders Medication Instructions Recorded RX: Albuterol HFA [Ventolin HFA 90 2 puff IH Q6 PRN 10/02/17 mcg/actuation (8 g)] RX: Aspirin [Ecotrin] 81 mg PO DAILY 10/02/17 RX: Losartan Potassium 100 mg PO DAILY #30 tablet 06/19/18 RX: Acetaminophen [Tylenol 325mg 650 mg PO Q6 PRN tab 10/03/18 tab] RX: Cyanocobalamin [Vitamin B12 1,000 mcg PO DAILY tab 10/03/18 1000 mcg Tab] RX: Famotidine [Pepcid] 20 mg PO BID tab 10/03/18 RX: Ferrous Sulfate [Feosol] 325 mg PO DAILY tab 10/03/18 RX: Insulin Detemir [Levemir] 10 units SQ HS #0 10/03/18 RX: Nystatin [Nystop Topical 1 applic TOP TID PRN bottle 10/03/18 Powder] - Allergies Allergies/Adverse Reactions: Allergies Allergy/AdvReac Type Severity Reaction Status Date / Time No Known Allergies Allergy Verified 06/18/18 14:13 Review of Systems ROS Statement: Except As Marked, All Systems Reviewed And Found Negative Musculoskeletal: Positive for: Back Pain, Other (left hip pain) Physical Exam - Reviewed Nursing Documentation Reviewed: Yes Vital Signs Reviewed: Yes - Physical Exam Appears: Positive for: No Acute Distress Head Exam: Positive for: ATRAUMATIC, NORMOCEPHALIC Skin: Positive for: Normal Color, Warm, Dry Eye Exam: Positive for: Normal appearance ENT: Positive for: Normal ENT Inspection Neck: Positive for: Normal, Painless ROM, Supple Cardiovascular/Chest: Positive for: Regular Rate, Rhythm. Negative for: Bradycardia Respiratory: Positive for: Normal Breath Sounds. Negative for: Respiratory Distress Gastrointestinal/Abdominal: Positive for: Normal Exam Pelvic Exam: Negative for: Other (hip tenderness) Extremity: Positive for: Normal ROM, Other (pain when she moves her lower body; pain is not localized to one location. no hip tenderness. ). Negative for: Deformity Neurologic/Psych: Positive for: Alert, Oriented - Laboratory Results Result Diagrams: 10/03/18 04:25 10/03/18 04:25 - ECG ECG Rhythm: Positive for: Sinus Rhythm (normal) Rate: 78 O2 Sat by Pulse Oximetry: 99 (RA) Pulse Ox Interpretation: Normal Medical Decision Making Medical Decision Making: Time: 0146 Impression:fall/sycnope Rule out fractures, electrolyte imbalance, UTI or other infection Plan: --CT cervical spine without contrast --CT head without contrast --CMP --Troponin I --CBC with differential --Chest xray --Tylenol 650 mg PO --Urine culture --Urinalysis --Hip Min 2 V with pelvis MASON xray Head CT findings: COMMENTS: There is normal configuration of sella turcica. There are no intra or extra- axial collections. There is no mass effect or midline shift. There is no evidence of hematoma formation. No hydrocephalus is present. The ventricles are symmetrical. No abnormal calcifications are present. There is diffuse age-appropriate cerebellar and cerebral atrophy with proportionally dilated ventricles and cortical sulci. There are bilateral periventricular and subcortical white matter hypolucencies compatible with mild chronic microvascular disease. Otherwise, no significant focal abnormalities are seen either in the posterior fossa or supratentorial compartment. IMPRESSION: 1. Age-appropriate cerebellar and cerebral atrophy. 2. Mild chronic microvascular disease. 3. No evidence of acute intracranial pathology. Spine CT Findings: There are diffuse spondylotic changes. Findings are demonstrated by disc space narrowing, osteophyte formation and degenerative endplate changes. Facet joint arthropathy is noted. No fracture or dislocation is seen. No aggressive bone lesion is noted. Moderate multilevel degenerative disc disease more prominent at C5-6. Impression: Spondylosis. Multilevel facet joint arthropathy. No acute bone pathology. 0426 Labs show patient to be anemic but compared to prior labs, it is at baseline. But since we don't know the details of the fall, patient will be admitted for observation for syncope.. Dr. Hall accepted patient for admission. Chest X-ray Findings: EXAM: CR Chest, 1 View. CLINICAL HISTORY: Fall pain COMPARISON: None provided. FINDINGS: LUNGS: The lungs appear within normal limits. PLEURAL SPACES: No evidence of pleural effusion or pneumothorax. MEDIASTINUM: Cardiac size and mediastinal contours within normal limits. BONES: No aggressive appearing osseous lesion seen. IMPRESSION: No acute cardiopulmonary pathology is evident. Hip x-ray FINDINGS: BONES: No acute fracture or aggressive appearing osseous lesion. Posterior lumbar hardware is in place. JOINTS: No dislocation. The joint spaces are normal. SOFT TISSUES: The soft tissues are unremarkable. IMPRESSION: No acute osseous abnormality. Scribe Attestation: Documented by Dino Alcantar, acting as a scribe for Daniele Berry MD Provider Scribe Attestation: All medical record entries made by the Scribe were at my direction and pers onally dictated by me. I have reviewed the chart and agree that the record accurately reflects my personal performance of the history, physical exam, medical decision making, and the department course for this patient. I have also personally directed, reviewed, and agree with the discharge instructions and disposition. Disposition - Clinical Impression Clinical Impression: Fall, Syncope - Patient ED Disposition Is Patient to be Admitted: Yes Counseled Patient/Family Regarding: Studies Performed, Diagnosis - Disposition Disposition Time: 04:00 Condition: STABLE
[2018-10-01 04:08] LABS: BASO % 0.2 % (0.0-2.0); EOS # 0.2 K/uL (0.0-0.7); EOS % 2.3 % (0.0-4.0); HEMOGLOBIN 9.6 g/dL (12.0-16.0); LYMPH # 1.4 K/uL (1.0-4.3); LYMPH % 15.6 % (20.0-40.0); MEAN CELL VOLUME 80.8 fl (81.0-99.0); MEAN CORPUSCULAR HEMOGLOBIN 24.5 pg (27.0-31.0); MEAN CORPUSCULAR HGB CONC 30.3 g/dL (33.0-37.0); MEAN PLATELET VOLUME 10.3 fl (7.2-11.7); MONO # 0.7 K/uL (0.0-0.8); MONO % 8.5 % (0.0-10.0); NEUT # 6.4 K/uL (1.8-7.0); NEUT % 73.4 % (50.0-75.0); NRBC % 0.1 % (0.0-0.0); RBC 3.94 Mil/uL (3.80-5.20); WHITE BLOOD COUNT 8.7 K/uL (4.8-10.8)
[2018-10-01 04:16] LABS: ALB/GLOB RATIO 1.1 (1.0-2.1); ALBUMIN 3.9 g/dL (3.5-5.0); ALT/SGPT 18 U/L (9-52); AST/SGOT 25 U/L (14-36); BLOOD UREA NITROGEN 16 mg/dl (7-17); CALCIUM 9.8 mg/dL (8.4-10.2); GFR NON-AFRICAN AMERICAN > 60
[2018-10-01 04:44] LABS: SQUAMOUS EPITHIAL < 1 /hpf (0-5); URINE BILIRUBIN NEGATIVE (NEGATIVE); URINE BLOOD SMALL (NEGATIVE); URINE CLARITY CLEAR (Clear); URINE COLOR YELLOW (YELLOW); URINE GLUCOSE (UA) NEG (NEGATIVE); URINE LEUKOCYTE ESTERASE TRACE Leu/uL (Negative); URINE PROTEIN 100 mg/dL (NEGATIVE); URINE UROBILINOGEN 0.2-1.0 mg/dL (0.2-1.0)
--- NOTE | 2018-10-01 05:23 | CP.PCM.HP ---
<Giovanni Steen - Last Filed: 10/01/18 05:50> History of Present Illness - History of Present Illness History of Present Illness: 78 yo F with pmhx of HTN, COPD, GERD, DM chronic back pain presens s/p fall. Less than an hour prior to arrival to ED, after urinating, pt was walking from the restroom when she felt her legs were "wobbly" and gave out, causing her to fall. She denies preceding dizziness, LOC, recent head trauma, bowel/urinary incontinence, dysuria or increased urinary frequency. She denies hitting her head when she fell, however, she reports generalized body aches. She reports she normally ambulates with a cane. Of note: she reports increase in falls recently along with lightheadedness when she rises from a supine position. She lives alone with occasional assistance from an aide. PMD: León Samuels Famhx: DM Soc: Reports occasional cigarette; Denies: alcohol or illicit drugs Surg: multiple back surgeries NKDA Present on Admission - Present on Admission Any Indicators Present on Admission: Yes History of Uncontrolled Diabetes: Yes Urinary Catheter: No Decubitus Ulcer Present: No Review of Systems - Constitutional Constitutional: Frequent Falls, Weakness - Cardiovascular Cardiovascular: absent: Chest Pain - Respiratory Respiratory: absent: Dyspnea - Gastrointestinal Gastrointestinal: absent: Abdominal Pain - Musculoskeletal Musculoskeletal: Back Pain - Neurological Neurological: Abnormal Gait (Uses cane ) Past Patient History - Tetanus Immunizations Tetanus Immunization: Unknown - Past Medical History & Family History Past Medical History?: Yes - Past Social History Smoking Status: Light Smoker < 10 Cigarettes Daily Alcohol: None Drugs: Denies - CARDIAC Hx Hypertension: Yes - PULMONARY Hx Bronchitis: Yes Hx Chronic Obstructive Pulmonary Disease (COPD): Yes Hx Emphysema: Yes Hx Pneumonia: Yes - NEUROLOGICAL Hx Neurological Disorder: Yes HX Cerebrovascular Accident: Yes (RESIDUAL L SIDED WEAKNESS) Hx Syncope: Yes Other/Comment: Hx Temporal Arteritis - HEENT Hx HEENT Problems: Yes Hx Cataracts: Yes - RENAL Hx Chronic Kidney Disease: No - ENDOCRINE/METABOLIC Hx Endocrine Disorders: Yes Hx Diabetes Mellitus Type 2: Yes - HEMATOLOGICAL/ONCOLOGICAL Hx Anemia: Yes Hx Human Immunodeficiency Virus (HIV): No - INTEGUMENTARY Hx Dermatological Problems: No - MUSCULOSKELETAL/RHEUMATOLOGICAL Hx Musculoskeletal Disorders: Yes Hx Back Pain: Yes Hx Falls: Yes Hx Herniated Disk: Yes - GASTROINTESTINAL Hx Pancreatitis: Yes - GENITOURINARY/GYNECOLOGICAL Hx Genitourinary Disorders: No - PSYCHIATRIC Hx Substance Use: No - SURGICAL HISTORY Hx Appendectomy: Yes Hx Cholecystectomy: Yes - ANESTHESIA Hx Anesthesia: Yes Hx Anesthesia Reactions: No Hx Malignant Hyperthermia: No Meds Allergies/Adverse Reactions: Allergies Allergy/AdvReac Type Severity Reaction Status Date / Time No Known Allergies Allergy Verified 06/18/18 14:13 Physical Exam - Constitutional Appears: No Acute Distress - Eye Exam Eye Exam: EOMI - ENT Exam ENT Exam: Mucous Membranes Moist - Respiratory Exam Respiratory Exam: Clear to Auscultation Bilateral, NORMAL BREATHING PATTERN. absent: Wheezes - Cardiovascular Exam Cardiovascular Exam: +S1, +S2 - GI/Abdominal Exam GI & Abdominal Exam: Normal Bowel Sounds, Soft, Tenderness - Neurological Exam Neurological exam: Alert, CN II-XII Intact, Oriented x3 - Psychiatric Exam Psychiatric exam: Normal Affect, Normal Mood Results - Vital Signs Recent Vital Signs: Last Vital Signs Temp 98.1 F 10/01/18 04:41 Pulse 78 10/01/18 04:42 Resp 19 10/01/18 04:41 BP 162/74 H 10/01/18 04:41 Pulse Ox 99 10/01/18 04:42 - Labs Result Diagrams: 10/01/18 04:01 10/01/18 04:01 Labs: Laboratory Results - last 24 hr 10/01/18 10/01/18 10/01/18 04:01 04:01 04:01 WBC 8.7 RBC 3.94 Hgb 9.6 L Hct 31.8 L MCV 80.8 L D MCH 24.5 L MCHC 30.3 L RDW 19.0 H Plt Count 205 MPV 10.3 Neut % (Auto) 73.4 Lymph % (Auto) 15.6 L [place] % (Auto) 8.5 Eos % (Auto) 2.3 Baso % (Auto) 0.2 Neut # (Auto) 6.4 Lymph # (Auto) 1.4 [place] # (Auto) 0.7 Eos # (Auto) 0.2 Baso # (Auto) 0.0 Sodium 138 Potassium 4.1 Chloride 103 Carbon Dioxide 28 Anion Gap 11 BUN 16 Creatinine 0.8 Est GFR ( Amer) > 60 Est GFR (Non-Af Amer) > 60 Random Glucose 155 H Calcium 9.8 Total Bilirubin 0.3 AST 25 ALT 18 Alkaline Phosphatase 94 Troponin I < 0.0120 Total Protein 7.4 Albumin 3.9 Globulin 3.5 Albumin/Globulin Ratio 1.1 Urine Color Yellow Urine Clarity Clear Urine pH 6.0 Ur Specific Rufus 1.010 Urine Protein 100 Urine Glucose (UA) Neg Urine Ketones Negative Urine Blood Small Urine Nitrate Negative Urine Bilirubin Negative Urine Urobilinogen 0.2-1.0 Ur Leukocyte Esterase Trace Urine RBC (Auto) 5 H Urine Microscopic WBC 4 Ur Squamous Epith Cells < 1 Assessment & Plan - Assessment and Plan (Free Text) Assessment: 78 yo F with pmhx of HTN, COPD, GERD, chronic back pain presens s/p fall admitted for possible presyncope. Plan: CT Head: 1. Age-appropriate cerebellar and cerebral atrophy. 2. Mild chronic microvascular disease. 3. No evidence of acute intracranial pathology. CT: Cervical spine: Spondylosis. Multilevel facet joint arthropathy. No acute bone pathology. XR: hip/pelvis: No acute osseous abnormality. XR: chest: No acute cardiopulmonary pathology is evident. Presycope with fall Admit to Tele nurse monitoring Diagnostic imaging reviewed Possible vasovagal episode Neurochecks q4 labs reviewed UA: neg nitrate/leuk f/u lipid, b12, tsh, urine culture Anemia hgb: 9.6 f/u iron studies DM held metformin cw actos cw Levemir 10U qhs accuchecks ISS heart healthy diet COPD continue with home meds HTN c/w home meds monitor vitals DVT prophylaxis SCDs PT/OT eval and treat Turnaround Engineer Assistance for possible home services Case and Plan d/w Dr. Rafael Steen MD PGY2 <Anselmo Hall - Last Filed: 10/01/18 10:46> Results - Vital Signs Recent Vital Signs: Last Vital Signs Temp 98.9 F 10/01/18 09:19 Pulse 77 10/01/18 09:20 Resp 16 10/01/18 09:19 BP 157/89 H 10/01/18 09:20 Pulse Ox 97 10/01/18 09:19 - Labs Result Diagrams: 10/01/18 04:01 10/01/18 04:01 Labs: Laboratory Results - last 24 hr 10/01/18 10/01/18 10/01/18 04:01 04:01 04:01 WBC 8.7 RBC 3.94 Hgb 9.6 L Hct 31.8 L MCV 80.8 L D MCH 24.5 L MCHC 30.3 L RDW 19.0 H Plt Count 205 MPV 10.3 Neut % (Auto) 73.4 Lymph % (Auto) 15.6 L [place] % (Auto) 8.5 Eos % (Auto) 2.3 Baso % (Auto) 0.2 Neut # (Auto) 6.4 Lymph # (Auto) 1.4 [place] # (Auto) 0.7 Eos # (Auto) 0.2 Baso # (Auto) 0.0 Sodium 138 Potassium 4.1 Chloride 103 Carbon Dioxide 28 Anion Gap 11 BUN 16 Creatinine 0.8 Est GFR ( Amer) > 60 Est GFR (Non-Af Amer) > 60 POC Glucose (mg/dL) Random Glucose 155 H Calcium 9.8 Ferritin Total Bilirubin 0.3 AST 25 ALT 18 Alkaline Phosphatase 94 Troponin I < 0.0120 Total Protein 7.4 Albumin 3.9 Globulin 3.5 Albumin/Globulin Ratio 1.1 Triglycerides Cholesterol LDL Cholesterol Direct HDL Cholesterol Vitamin B12 TSH 3rd Generation Urine Color Yellow Urine Clarity Clear Urine pH 6.0 Ur Specific [place] 1.010 Urine Protein 100 Urine Glucose (UA) Neg Urine Ketones Negative Urine Blood Small Urine Nitrate Negative Urine Bilirubin Negative Urine Urobilinogen 0.2-1.0 Ur Leukocyte Esterase Trace Urine RBC (Auto) 5 H Urine Microscopic WBC 4 Ur Squamous Epith Cells < 1 10/01/18 10/01/18 06:04 08:14 WBC RBC Hgb Hct MCV MCH MCHC RDW Plt Count MPV Neut % (Auto) Lymph % (Auto) [place] % (Auto) Eos % (Auto) Baso % (Auto) Neut # (Auto) Lymph # (Auto) [place] # (Auto) Eos # (Auto) Baso # (Auto) Sodium Potassium Chloride Carbon Dioxide Anion Gap BUN Creatinine Est GFR ( Amer) Est GFR (Non-Af Amer) POC Glucose (mg/dL) 127 H Random Glucose Calcium Ferritin 7.8 L Total Bilirubin AST ALT Alkaline Phosphatase Troponin I Total Protein Albumin Globulin Albumin/Globulin Ratio Triglycerides 79 D Cholesterol 125 LDL Cholesterol Direct 46 HDL Cholesterol 66 Vitamin B12 282 TSH 3rd Generation 0.61 Urine Color Urine Clarity Urine pH Ur Specific Rufus Urine Protein Urine Glucose (UA) Urine Ketones Urine Blood Urine Nitrate Urine Bilirubin Urine Urobilinogen Ur Leukocyte Esterase Urine RBC (Auto) Urine Microscopic WBC Ur Squamous Epith Cells Attending/Attestation - Attestation I have personally seen and examined this patient.: Yes I have fully participated in the care of the patient.: Yes I have reviewed all pertinent clinical information: Yes Notes (Text): 10/01/18 10:40 i saw and examined this patient shoulder to shoulder with Dr Dang. Veliz with the assessment and plan outlined. this is an 88 years old female, living alone with hx of CVA with left side weakness, using a cane to ambulate, who fell an dcould not get up f0r half to one hour when EMS were summoned. No LOC. CT head was negative for Acute pathology. We will treat this patient for Presyncope and r/o CVA. Follow Neuro checks Q4H. Consult Physical and Occupational Therapy. follow Iron and Iron binding capacity. Control Diabetes Mellitus and HTN. Anselmo Hall MD
[2018-10-01] MEDS ORDERED: Albuterol HFA 90 mcg/actuation (8 g) IH PRN (05:49)
[2018-10-01] MEDS ORDERED: Dextrose 50% SYRINGE Inj (50 ml) IV PRN (05:54)
[2018-10-01] MEDS ORDERED: Glucagon Recombinant 1 mg Inj IM PRN (05:54)
[2018-10-01 06:59] LABS: HDL CHOLESTEROL 66 MG/DL (30-70)
[2018-10-01 07:10] LABS: LDL CHOLESTEROL 46 mg/dL (0-129)
[2018-10-01 07:36] LABS: FERRITIN 7.8 ng/Ml (11.1-264.0)
--- NOTE | 2018-10-01 08:08 | RAD ---
Date of service: 10/01/2018 PROCEDURE: HISTORY: fall COMPARISON: 11/21/2014 TECHNIQUE: AP pelvis and frog's leg view. FINDINGS: Generalized osteopenia.. No fracture or dislocation appreciated. Grossly intact inferior lumbar spinal hardware present right S1 lumbarized inferred transverse process asymmetrically articulating with right sacral wing. Exuberant and bridging mid to inferior lumbar spondylosis Sacroiliac joints unremarkable. Mild sclerotic arthropathic changes pubic symphysis. Bilateral axial hip joint space narrowing with diffuse superior and inferior acetabular spurring. Descending abdominal aortic and common iliac arterial bilateral groin arterial vascular calcifications are present. Moderate stool right retention right colon moderate stool retention. Right upper quadrant post cholecystectomy surgical clips inferred. Left inferior pelvic phleboliths. IMPRESSION: No acute fracture or dislocation. Osteopenia limits optimal evaluation. Multifocal degenerative and postsurgical changes as above.
--- NOTE | 2018-10-01 08:22 | RAD ---
Date of service: 10/01/2018 HISTORY: body pain COMPARISON: 06/18/2018 chest x-ray. 01/15/2016 chest x-ray. CT angio PE study 01/15/2016. FINDINGS: LUNGS: Vague increased opacity left upper lobe. Interval/developing infiltrate and/or mass considerations. PLEURA: No significant pleural effusion identified, no pneumothorax apparent. CARDIOVASCULAR: There is presence of aortic atherosclerotic calcification on x-ray. 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 Normal cardiac size. No pulmonary vascular congestion. OSSEOUS STRUCTURES: Asymmetrical widening of the right acromioclavicular joint no superior inferior offset. Possible surgical intervention lateral clavicle here is 1 consideration. This portion of the lateral clavicle is not well seen on reviewed prior imaging studies to assess chronicity. Right humeral head is high-riding with chronic rotator cuff pathology.. VISUALIZED UPPER ABDOMEN: Normal. OTHER FINDINGS: None. IMPRESSION: Interval left upper lobe developing pulmonary infiltrate and/or developing mass. Clinical correlation and follow-up recommended. 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 Please note this prior reports and any prior cardiac thoracic surgical consultations for it. Comments: Study marked for PA review. Please note that this current report is a discordant results with the preliminary [facility] rad report. The study is marked as such for review
[2018-10-01] MEDS: Insulin Regular 100 units/ml SC SCH ×4 (08:50→22:33)
--- NOTE | 2018-10-01 09:51 | CT ---
Date of service: 10/01/2018 PROCEDURE: CT HEAD WITHOUT CONTRAST. HISTORY: headache COMPARISON: 10/02/2017 TECHNIQUE: Axial computed tomography images were obtained through the head/brain without intravenous contrast. Radiation dose: Total exam DLP = 733.97 mGy-cm. This CT exam was performed using one or more of the following dose reduction techniques: Automated exposure control, adjustment of the mA and/or kV according to patient size, and/or use of iterative reconstruction technique. FINDINGS: HEMORRHAGE: No intracranial hemorrhage. BRAIN: No mass effect or edema. There is generalized atrophy. No gross significant appearing microvascular ischemic changes. VENTRICLES: Unremarkable. No hydrocephalus. CALVARIUM: Unremarkable. PARANASAL SINUSES: Unremarkable as visualized. No significant inflammatory changes. MASTOID AIR CELLS: Unremarkable as visualized. No inflammatory changes. OTHER FINDINGS: None. IMPRESSION: Cerebral atrophy compatible with patient's age. No interval pathology noted. No hemorrhage or mass effect seen. No significant appearing paranasal sinusitis Concordant results (preliminary interpretation) provided by [facility].
--- NOTE | 2018-10-01 11:42 | CT ---
Date of service: 10/01/2018 PROCEDURE: CT Cervical Spine without contrast HISTORY: fall COMPARISON: A CT neck soft tissue study from 02/01/2017 is noted. TECHNIQUE: Axial computed tomography images were obtained of the cervical spine without the use of intravenous contrast. Coronal and sagittal reformatted images were created and reviewed. Radiation dose: Total exam DLP = 196.08 mGy-cm. This CT exam was performed using one or more of the following dose reduction techniques: Automated exposure control, adjustment of the mA and/or kV according to patient size, and/or use of iterative reconstruction technique. FINDINGS: VERTEBRAE: No fracture. Normal alignment. No destructive bony lesion. Diffuse cervical spondylosis especially C3-C4 C5 and C6.Endplate ridging and uncovertebral hypertrophy present DISCS/SPINAL CANAL/NEURAL FORAMINA: C3-4: Minimal bilateral lateral recess/proximal foraminal encroachment from bony I hypertrophy changes. Similar findings noted at C4-5-right side greater than left. C5-6 in addition to the encroachment on each lateral recess and proximal foramen which is moderate slightly greater on the right there is mild-to moderate central canal stenosis prominent midline posterior endplate bony spurring occurring here. No significant central canal or neural foraminal stenosis. Discs heights are grossly preserved. PARASPINAL SOFT TISSUES: Unremarkable. OTHER FINDINGS: Extensive atherosclerotic vascular calcifications of the carotid arteries and branches noted. IMPRESSION: No fracture or acute subluxation suggested. Osseous hypertrophic senescent cervical spondylosis, uncovertebral hypertrophy with the aforementioned effects-most notable at C5-6 level. Concordant results (preliminary interpretation) provided by [facility].
[2018-10-01 16:03] LABS: FOLATE > 20.0 ng/mL
[2018-10-01] MEDS ORDERED: Fluconazole 150 MG TAB PO ONE (16:57)
[2018-10-01] MEDS ORDERED: Insulin Regular 100 units/ml ONE (22:00)
[2018-10-01] MEDS ORDERED: Insulin Detemir 100 Units/ml Inj SC ONE (22:00)
[2018-10-01] MEDS: Insulin Detemir 100 Units/ml Inj SC SCH (22:30)
[2018-10-01] MEDS ORDERED: Labetalol 5mg/ml (4ml) IVP STA (23:41)
[2018-10-01] MEDS ORDERED: Labetalol 5mg/ml (4ml) ONE (23:45)
--- NOTE | 2018-10-01 23:46 | CP.PCM.HP ---
Past Patient History - Tetanus Immunizations Tetanus Immunization: Unknown - Past Medical History & Family History Past Medical History?: Yes - Past Social History Smoking Status: Former Smoker - CARDIAC Hx Cardiac Disorders: Yes Hx Angina: No Hx Atrial Fibrillation: No Hx Cardia Arrhythmia: No Hx Circulatory Problems: No Hx Congestive Heart Failure: No Hx Heart Attack: No Hx Heart Murmur: No Hx Heart Transplant: No Hx Hypercholesterolemia: Yes Hx Hypertension: Yes Hx Hypotension: No Hx Internal Defibrillator: No Hx Mitral Valve Prolapse: No Hx Pacemaker: No Hx Peripheral Edema: Yes Hx Peripheral Vascular Disease: No - PULMONARY Hx Respiratory Disorders: Yes Hx Asthma: No Hx Bronchitis: Yes Hx Chronic Obstructive Pulmonary Disease (COPD): Yes Hx Emphysema: Yes Hx Lung Cancer: No Hx Pneumonia: Yes Hx Pulmonary Edema: No Hx Pulmonary Embolism: No Hx Respiratory Aspiration: No Hx Respiratory Tract Infection: Yes Hx Sleep Apnea: No Hx Tuberculosis: No - NEUROLOGICAL Hx Neurological Disorder: Yes Hx Alzheimer's Disease: No HX Cerebrovascular Accident: Yes (RESIDUAL L SIDED WEAKNESS) Hx Dementia: No Hx Dizziness: No Hx Meningitis: No Hx Migraine: No Hx Multiple Sclerosis: No Hx Seizures: No Hx Syncope: Yes Hx Transient Ischemic Attacks (TIA): No Hx Vertigo: Yes Other/Comment: Hx Temporal Arteritis - HEENT Hx HEENT Problems: Yes Hx Blind: No Hx Cataracts: Yes Hx Deafness: No Hx Difficulty Chewing: Yes Hx Epistaxis: No Hx Glaucoma: No Hx Macular Degeneration: No Hx Sinusitis: No - RENAL Hx Chronic Kidney Disease: No - ENDOCRINE/METABOLIC Hx Endocrine Disorders: Yes Hx Adrenal Cancer: No Hx Diabetes Insipidus: No Hx Diabetes Mellitus Type 1: No Hx Diabetes Mellitus Type 2: Yes Hx Hyperthyroidism: No Hx Hypothyroidism: No Hx Systemic Lupus Erythematosus: No - HEMATOLOGICAL/ONCOLOGICAL Hx Blood Disorders: Yes Hx AIDS: No Hx Anemia: Yes Hx Blood Transfusions: No Hx Blood Transfusion Reaction: No Hx Bruising: No Hx Cancer: No Hx Chemotherapy: No Hx Cirrhosis: No Hx Gum Bleeding: No Hx Hemophilia: No Hx Hepatitis A: No Hx Hepatitis B: No Hx Hepatitis C: No Hx Human Immunodeficiency Virus (HIV): No Hx Shingles: No Hx Sickle Cell Disease: No Hx Unexplained Bleeding: No - INTEGUMENTARY Hx Dermatological Problems: No - MUSCULOSKELETAL/RHEUMATOLOGICAL Hx Musculoskeletal Disorders: Yes Hx Arthritis: Yes Hx Back Pain: Yes Hx Falls: No Hx Herniated Disk: Yes Hx Unsteady Gait: Yes - GASTROINTESTINAL Hx Gastrointestinal Disorders: Yes Hx Pancreatitis: Yes - GENITOURINARY/GYNECOLOGICAL Hx Genitourinary Disorders: No - PSYCHIATRIC Hx Psychophysiologic Disorder: No Hx Substance Use: No - SURGICAL HISTORY Hx Surgeries: Yes Hx Appendectomy: Yes Hx Cholecystectomy: Yes - ANESTHESIA Hx Anesthesia: Yes Hx Anesthesia Reactions: No Hx Malignant Hyperthermia: No Has any member of the family had a problem w/ anesthesia?: No Meds Allergies/Adverse Reactions: Allergies Allergy/AdvReac Type Severity Reaction Status Date / Time No Known Allergies Allergy Verified 06/18/18 14:13 Results - Vital Signs Recent Vital Signs: Last Vital Signs Temp 98.4 F 10/01/18 16:05 Pulse 75 10/01/18 16:49 Resp 15 10/01/18 16:05 BP 179/90 H 10/01/18 16:49 Pulse Ox 97 10/01/18 16:05 - Labs Result Diagrams: 10/01/18 04:01 10/01/18 04:01 Labs: Laboratory Results - last 24 hr 10/01/18 10/01/18 10/01/18 04:01 04:01 04:01 WBC 8.7 RBC 3.94 Hgb 9.6 L Hct 31.8 L MCV 80.8 L D MCH 24.5 L MCHC 30.3 L RDW 19.0 H Plt Count 205 MPV 10.3 Neut % (Auto) 73.4 Lymph % (Auto) 15.6 L [place] % (Auto) 8.5 Eos % (Auto) 2.3 Baso % (Auto) 0.2 Neut # (Auto) 6.4 Lymph # (Auto) 1.4 [place] # (Auto) 0.7 Eos # (Auto) 0.2 Baso # (Auto) 0.0 Sodium 138 Potassium 4.1 Chloride 103 Carbon Dioxide 28 Anion Gap 11 BUN 16 Creatinine 0.8 Est GFR ( Amer) > 60 Est GFR (Non-Af Amer) > 60 POC Glucose (mg/dL) Random Glucose 155 H Calcium 9.8 Ferritin Total Bilirubin 0.3 AST 25 ALT 18 Alkaline Phosphatase 94 Troponin I < 0.0120 Total Protein 7.4 Albumin 3.9 Globulin 3.5 Albumin/Globulin Ratio 1.1 Triglycerides Cholesterol LDL Cholesterol Direct HDL Cholesterol Vitamin B12 Folate TSH 3rd Generation Urine Color Yellow Urine Clarity Clear Urine pH 6.0 Ur Specific Daniels 1.010 Urine Protein 100 Urine Glucose (UA) Neg Urine Ketones Negative Urine Blood Small Urine Nitrate Negative Urine Bilirubin Negative Urine Urobilinogen 0.2-1.0 Ur Leukocyte Esterase Trace Urine RBC (Auto) 5 H Urine Microscopic WBC 4 Ur Squamous Epith Cells < 1 10/01/18 10/01/18 10/01/18 06:04 08:14 11:33 WBC RBC Hgb Hct MCV MCH MCHC RDW Plt Count MPV Neut % (Auto) Lymph % (Auto) [place] % (Auto) Eos % (Auto) Baso % (Auto) Neut # (Auto) Lymph # (Auto) [place] # (Auto) Eos # (Auto) Baso # (Auto) Sodium Potassium Chloride Carbon Dioxide Anion Gap BUN Creatinine Est GFR ( Amer) Est GFR (Non-Af Amer) POC Glucose (mg/dL) 127 H 139 H Random Glucose Calcium Ferritin 7.8 L Total Bilirubin AST ALT Alkaline Phosphatase Troponin I Total Protein Albumin Globulin Albumin/Globulin Ratio Triglycerides 79 D Cholesterol 125 LDL Cholesterol Direct 46 HDL Cholesterol 66 Vitamin B12 282 Folate > 20.0 TSH 3rd Generation 0.61 Urine Color Urine Clarity Urine pH Ur Specific Daniels Urine Protein Urine Glucose (UA) Urine Ketones Urine Blood Urine Nitrate Urine Bilirubin Urine Urobilinogen Ur Leukocyte Esterase Urine RBC (Auto) Urine Microscopic WBC Ur Squamous Epith Cells 10/01/18 16:09 WBC RBC Hgb Hct MCV MCH MCHC RDW Plt Count MPV Neut % (Auto) Lymph % (Auto) [place] % (Auto) Eos % (Auto) Baso % (Auto) Neut # (Auto) Lymph # (Auto) [place] # (Auto) Eos # (Auto) Baso # (Auto) Sodium Potassium Chloride Carbon Dioxide Anion Gap BUN Creatinine Est GFR ( Amer) Est GFR (Non-Af Amer) POC Glucose (mg/dL) 203 H Random Glucose Calcium Ferritin Total Bilirubin AST ALT Alkaline Phosphatase Troponin I Total Protein Albumin Globulin Albumin/Globulin Ratio Triglycerides Cholesterol LDL Cholesterol Direct HDL Cholesterol Vitamin B12 Folate TSH 3rd Generation Urine Color Urine Clarity Urine pH Ur Specific Daniels Urine Protein Urine Glucose (UA) Urine Ketones Urine Blood Urine Nitrate Urine Bilirubin Urine Urobilinogen Ur Leukocyte Esterase Urine RBC (Auto) Urine Microscopic WBC Ur Squamous Epith Cells
[2018-10-02 06:07] LABS: HEMOGLOBIN 10.4 g/dL (12.0-16.0); MEAN CELL VOLUME 78.3 fl (81.0-99.0); MEAN CORPUSCULAR HEMOGLOBIN 24.5 pg (27.0-31.0); MEAN CORPUSCULAR HGB CONC 31.3 g/dL (33.0-37.0); RBC 4.23 Mil/uL (3.80-5.20); RED CELL DISTRIBUTION WIDTH 18.6 % (11.5-14.5); WHITE BLOOD COUNT 6.1 K/uL (4.8-10.8)
[2018-10-02 06:09] LABS: BLOOD UREA NITROGEN 14 mg/dl (7-17); GFR NON-AFRICAN AMERICAN > 60
--- NOTE | 2018-10-02 07:47 | CARD ---
APPROVED REPORT Date of service: 10/01/2018 EKG Measurement Heart [id number] <Conclusion> Normal sinus rhythm Normal ECG
--- NOTE | 2018-10-02 08:03 | CARD ---
APPROVED REPORT Date of service: 10/01/2018 EXAM: Two-dimensional and M-mode echocardiogram with Doppler and color Doppler. Other Information Quality : AverageRhythm : NSR Technically limited study due to Limited short axis views INDICATION Syncope 2D DIMENSIONS IVSd1.19 (0.7-1.1cm)LVDd3.52 (3.9-5.9cm) LVOT Diameter1.96 (1.8-2.4cm)PWd1.39 (0.7-1.1cm) IVSs1.35 (0.8-1.2cm)LVDs2.79 (2.5-4.0cm) FS (%) 20.7 %PWs1.41 (0.8-1.2cm) Aortic Valve AoV Peak Jlgcqeys679.9cm/sAoV VTI26.4cmAO Peak GR.5mmHg LVOT Peak Fxdabbsb63.4cm/sLVOT VTI15.83cmAO Mean GR.3mmHg ELISE (VMAX)1.78ul8MSN (VTI)1.24cm2 Mitral Valve MV E Mawcozzb515.8cm/sMV DECEL [id number] A Ensezxts067.7cm/s MV [id number]/A ratio0.6MVA (PHT)1.99cm2 TDI E/Lateral E'0.0E/Medial E'0.0 LEFT VENTRICLE The left ventricle is normal size. There is mild concentric left ventricular hypertrophy. The left ventricular systolic function is normal. The estimated ejection fraction is 55-60% No regional wall motion abnormalities noted.. Transmitral Doppler flow pattern is Grade I-abnormal relaxation pattern. No left ventricle thrombus noted on this study. There is no ventricular septal defect visualized. There is no left ventricular aneurysm. There is no mass noted in the left ventricle. RIGHT VENTRICLE The right ventricle is normal size. There is normal right ventricular wall thickness. The right ventricular systolic function is normal. ATRIA The left atrium size is normal. The right atrium size is normal. The interatrial septum is intact with no evidence for an atrial septal defect. AORTIC VALVE The aortic valve is normal in structure. No aortic regurgitation is present. There is no aortic valvular stenosis. There is no aortic valvular vegetation. MITRAL VALVE The mitral valve is mildly thickened. There is no evidence of mitral valve prolapse. There is mild mitral valve stenosis. Pressure half time is calculated at 145 m Sec with valve area of 1.51 cm2. Correlate clinically. There is no mitral valve regurgitation noted. TRICUSPID VALVE The tricuspid valve is normal in structure. There is no tricuspid valve regurgitation noted. There is no tricuspid valve prolapse or vegetation. There is no tricuspid valve stenosis. PULMONIC VALVE The pulmonary valve is normal in structure. There is no pulmonic valvular regurgitation. There is no pulmonic valvular stenosis. GREAT VESSELS The aortic root is normal in size. The ascending aorta is normal in size. The pulmonary artery is normal. The IVC is normal in size and collapses >50% with inspiration. PERICARDIAL EFFUSION There is no pericardial effusion. There is no pleural effusion. <Conclusion> There is mild concentric left ventricular hypertrophy. The estimated ejection fraction is 55-60% Transmitral Doppler flow pattern is Grade I-abnormal relaxation pattern. The left atrium size is normal. There is mild mitral valve stenosis. Pressure half time is calculated at 145 m sec with mitral valve area of 1.51 cm2. Correlate clinically.
[2018-10-02] MEDS: Insulin Regular 100 units/ml SC SCH ×4 (08:37→21:29)
--- NOTE | 2018-10-02 12:10 | CP.PCM.PN ---
Subjective - Date & Time of Evaluation Date of Evaluation: 10/02/18 Time of Evaluation: 10:25 - Subjective Subjective: Pt seen/eval at bedside. Reports that she feels ok but feels weak all over. Unable to ambulate without assistance and has pain at left hip due to fall. No chest pain, no shortness of breath. Discussed results of chest CT - findings of lung mass. Discussed that mass could be benign vs malignant; way to tell is biopsy. Pt states she never heard she has lung mass before, and would like to pursue to find out what it is. Objective - Vital Signs/Intake and Output Vital Signs (last 24 hours): Temp Pulse Resp BP Pulse Ox 98.8 F 77 20 141/70 98 10/02/18 08:00 10/02/18 12:00 10/02/18 08:00 10/02/18 12:00 10/02/18 08:00 - Medications Medications: Current Medications Acetaminophen (Tylenol 325mg Tab) 650 mg PO Q6 PRN PRN Reason: Pain, moderate (4-7) Last Admin: 10/02/18 08:38 Dose: 650 mg Albuterol (Ventolin Hfa 90 Mcg/Actuation (8 G)) 2 puff IH Q6 PRN PRN Reason: Shortness of Breath Amlodipine Besylate (Norvasc) 10 mg PO DAILY [facility] Last Admin: 10/02/18 10:21 Dose: 10 mg Aspirin (Ecotrin) 81 mg PO DAILY [facility] Last Admin: 10/02/18 08:33 Dose: 81 mg Cyanocobalamin (Vitamin B12 1000 Mcg Tab) 1,000 mcg PO DAILY [facility] Last Admin: 10/02/18 08:33 Dose: 1,000 mcg Dextrose (Dextrose 50% Inj) 0 ml IV STAT PRN; Protocol PRN Reason: Hypoglycemia Protocol Dextrose (Glutose 15) 0 gm PO ONCE PRN; Protocol PRN Reason: Hypoglycemia Protocol Famotidine (Pepcid) 20 mg PO BID [facility] Last Admin: 10/02/18 08:33 Dose: 20 mg Ferrous Sulfate (Feosol) 325 mg PO DAILY [facility] Last Admin: 10/02/18 08:33 Dose: 325 mg Glucagon (Glucagen Diagnostic Kit) 0 mg IM STAT PRN; Protocol PRN Reason: Hypoglycemia Protocol Insulin Detemir (Levemir) 10 units SC [facility] Last Admin: 10/01/18 22:30 Dose: 10 units Insulin Human Regular (Humulin R) 0 units SC [facility]; Protocol Last Admin: 10/02/18 08:37 Dose: Not Given Losartan Potassium (Cozaar) 100 mg PO DAILY [facility] Last Admin: 10/02/18 08:34 Dose: 100 mg - Labs Labs: 10/02/18 04:30 10/02/18 04:30 - Constitutional Appears: No Acute Distress - Head Exam Head Exam: NORMAL INSPECTION - Eye Exam Eye Exam: Normal appearance - ENT Exam ENT Exam: Mucous Membranes Moist - Neck Exam Neck Exam: Full ROM - Respiratory Exam Respiratory Exam: Clear to Ausculation Bilateral, NORMAL BREATHING PATTERN - Cardiovascular Exam Cardiovascular Exam: REGULAR RHYTHM, +S1, +S2 - GI/Abdominal Exam GI & Abdominal Exam: Soft, Normal Bowel Sounds - Extremities Exam Extremities Exam: absent: Calf Tenderness, Pedal Edema - Back Exam Back Exam: NORMAL INSPECTION - Neurological Exam Neurological Exam: Alert, Oriented x3 - Psychiatric Exam Psychiatric exam: Normal Mood - Skin Skin Exam: Dry, Warm Assessment and Plan - Assessment and Plan (Free Text) Assessment: 78 yo F with pmhx of HTN, COPD, GERD, CVA, chronic back pain admitted due to weakness, mechanical fall. Cannot ambulate on her own, unsafe to d/c. Has left hip pain due to contusion s/p fall (imaging shows no fractures). Found to have left sided lung mass - to be worked up outpatient after safe d/c. Plan: Mechanical Fall - tsh, folate, cholesterol wnl; B12 on low end of normal - Start B12 supplement - Continue PT - Pain control Lung Mass - Unclear etiology - Pulm consult - Dr. Waters - pt set up with percutaneous CT biopsy as outpatient - Originally IR consult placed; cancelled Anemia - Hgb 10.4 today - PO iron - f/u iron studies Diabetes Mellitus - Held metformin - Insulin coverage scalle - Levemir 10U qhs - Heart healthy diet COPD - Continue with home meds Hypertension - Continue home med losartan - Added norvasc DVT prophylaxis SCDs [employer] Operator Assistance for possible home services
--- NOTE | 2018-10-02 13:11 | PCM.IRP ---
History of Present Illness - History of Present Illness History of Present Illness: \ Request for lung mass biopsy. Plan on performing biopsy when Pt is discharged from ICU and ASA is held for 5 days. Biopsy can also be performed as an outpt. Objective - Vital Signs/Intake and Output Vital Signs (last 24 hours): Vital Signs - 24 hr 10/01/18 10/01/18 10/01/18 15:00 16:05 16:49 Temperature 98.4 F Pulse Rate 76 89 75 Respiratory 15 Rate Blood Pressure 179/90 H 179/90 H O2 Sat by Pulse 99 97 Oximetry 10/01/18 10/02/18 10/02/18 21:00 01:00 05:00 Temperature 98.1 F 98 F 97.9 F Pulse Rate 84 78 64 Respiratory 24 20 18 Rate Blood Pressure 148/72 113/40 L 112/55 L O2 Sat by Pulse 96 94 L 96 Oximetry 10/02/18 10/02/18 10/02/18 07:38 08:00 08:34 Temperature 98.8 F Pulse Rate 76 73 76 Respiratory 20 Rate Blood Pressure 157/71 H 157/71 H O2 Sat by Pulse 98 Oximetry 10/02/18 10/02/18 10:21 12:00 Temperature 98.5 F Pulse Rate 65 76 Respiratory 24 Rate Blood Pressure 162/59 H 93/50 L O2 Sat by Pulse 99 Oximetry Intake and Output (last 12 hours): Intake & Output 10/01/18 10/02/18 10/02/18 18:59 06:59 18:59 Output Total 300 Balance -300 Output: Urine 300 Urine, Voided 300 - Medications Medications: Current Medications Acetaminophen (Tylenol 325mg Tab) 650 mg PO Q6 PRN PRN Reason: Pain, moderate (4-7) Last Admin: 10/02/18 08:38 Dose: 650 mg Albuterol (Ventolin Hfa 90 Mcg/Actuation (8 G)) 2 puff IH Q6 PRN PRN Reason: Shortness of Breath Amlodipine Besylate (Norvasc) 10 mg PO DAILY [facility] Last Admin: 10/02/18 10:21 Dose: 10 mg Aspirin (Ecotrin) 81 mg PO DAILY [facility] Last Admin: 10/02/18 08:33 Dose: 81 mg Cyanocobalamin (Vitamin B12 1000 Mcg Tab) 1,000 mcg PO DAILY [facility] Last Admin: 10/02/18 08:33 Dose: 1,000 mcg Dextrose (Dextrose 50% Inj) 0 ml IV STAT PRN; Protocol PRN Reason: Hypoglycemia Protocol Dextrose (Glutose 15) 0 gm PO ONCE PRN; Protocol PRN Reason: Hypoglycemia Protocol Famotidine (Pepcid) 20 mg PO BID [facility] Last Admin: 10/02/18 08:33 Dose: 20 mg Ferrous Sulfate (Feosol) 325 mg PO DAILY [facility] Last Admin: 10/02/18 08:33 Dose: 325 mg Glucagon (Glucagen Diagnostic Kit) 0 mg IM STAT PRN; Protocol PRN Reason: Hypoglycemia Protocol Insulin Detemir (Levemir) 10 units SC HS [facility] Last Admin: 10/01/18 22:30 Dose: 10 units Insulin Human Regular (Humulin R) 0 units SC [facility]; Protocol Last Admin: 10/02/18 12:44 Dose: 1 u Losartan Potassium (Cozaar) 100 mg PO DAILY [facility] Last Admin: 10/02/18 08:34 Dose: 100 mg - Labs Labs (last 24 hours): Laboratory Results - last 24 hr 10/01/18 10/01/18 10/01/18 06:04 16:09 22:30 WBC RBC Hgb Hct MCV MCH MCHC RDW Plt Count Sodium Potassium Chloride Carbon Dioxide Anion Gap BUN Creatinine Est GFR ( Amer) Est GFR (Non-Af Amer) POC Glucose (mg/dL) 203 H 133 H Random Glucose Calcium Folate > 20.0 10/02/18 10/02/18 10/02/18 04:30 04:30 07:27 WBC 6.1 RBC 4.23 Hgb 10.4 L Hct 33.1 L MCV 78.3 L D MCH 24.5 L MCHC 31.3 L RDW 18.6 H Plt Count 196 Sodium 141 Potassium 4.1 Chloride 104 Carbon Dioxide 27 Anion Gap 14 BUN 14 Creatinine 0.8 Est GFR ( Amer) > 60 Est GFR (Non-Af Amer) > 60 POC Glucose (mg/dL) 117 H Random Glucose 154 H Calcium 10.0 Folate 10/02/18 11:12 WBC RBC Hgb Hct MCV MCH MCHC RDW Plt Count Sodium Potassium Chloride Carbon Dioxide Anion Gap BUN Creatinine Est GFR ( Amer) Est GFR (Non-Af Amer) POC Glucose (mg/dL) 179 H Random Glucose Calcium Folate
--- NOTE | 2018-10-02 14:25 | CT ---
Date of service: 10/01/2018 PROCEDURE: CT Chest without contrast HISTORY: infiltrate vs mass on CXR COMPARISON: 01/15/2016 TECHNIQUE: Contiguous axial images were obtained through the chest without intravenous contrast enhancement. Sagittal and coronal reconstructions were performed. Radiation dose (DLP): 216.38 mGy-cm. This CT exam was performed using one or more of the following dose reduction techniques: Automated exposure control, adjustment of the mA and/or kV according to patient size, and/or use of iterative reconstruction technique. FINDINGS: LUNGS: No pulmonary infiltrate. There is an irregular spiculated elongated mass in the left upper lobe measuring 1.6 x 3.1 by 2.6 cm. This is new since prior examination. Suspicious for pulmonary malignancy. Few scattered nodules bilaterally less than 5 mm. No other suspicious masses. 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 Previously, this measured approximately 4.2 cm in the same dimension. Mild increase in size. This has increased mildly in size when compared to the prior examination.. Normal sized heart. Main pulmonary artery unremarkable. No vascular congestion. No lymphadenopathy. Extensive atherosclerotic calcification of the thoracic aorta. PLEURA: No pleural fluid. No pneumothorax. BONES: No acute fracture. Evidence of lumbar spine fixation with orthopedic hardware seen at the most inferior margin of this examination. UPPER ABDOMEN: Status post cholecystectomy. Unilateral left adrenal hypertrophy. OTHER FINDINGS: None. 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 Irregular left upper lobe mass suspicious for malignancy new since prior CT. Recommend further evaluation with tissue sampling. The preliminary findings for this examination were reported by [facility] at 9:06 p.m. on 10/01/2018. There is concurrence of this report with the preliminary findings.
[2018-10-02] MEDS: Insulin Detemir 100 Units/ml Inj SC SCH (21:29)
--- NOTE | 2018-10-02 23:14 | CP.PCM.CON ---
History of Present Illness - History of Present Illness History of Present Illness: 88 y/o female found to have incidental lung mass on CESAR. VSS Head Neg Adeno Pos ROSHAN Heart RRR, NS1S2 Abdo: nt Ext No C,C, No Edema. Never smoker Labs as below. CESAR mass. Plan: Patient wants to go the PET/CT as oupatient and follow up with me. Explained there is no purpose to pursue this with invasive means if no treatment is going to be given because of patient refusal. Explained possible complications of IR BX and Endo Bronchial Bx. She will f/u with me as out patient. Signing out of case. PUD & DVT Px. Past Patient History - Tetanus Immunizations Tetanus Immunization: Unknown - Past Medical History & Family History Past Medical History?: Yes - Past Social History Smoking Status: Former Smoker - CARDIAC Hx Cardiac Disorders: Yes Hx Congestive Heart Failure: No Hx Hypercholesterolemia: Yes Hx Hypertension: Yes - PULMONARY Hx Chronic Obstructive Pulmonary Disease (COPD): Yes - NEUROLOGICAL HX Cerebrovascular Accident: Yes (RESIDUAL L SIDED WEAKNESS) - HEENT Hx HEENT Problems: Yes Hx Blind: No Hx Cataracts: Yes Hx Deafness: No Hx Difficulty Chewing: Yes Hx Epistaxis: No Hx Glaucoma: No Hx Macular Degeneration: No Hx Sinusitis: No - RENAL Hx Chronic Kidney Disease: No - ENDOCRINE/METABOLIC Hx Diabetes Mellitus Type 1: No Hx Diabetes Mellitus Type 2: Yes Hx Hypothyroidism: No - HEMATOLOGICAL/ONCOLOGICAL Hx Blood Disorders: Yes Hx AIDS: No Hx Anemia: Yes Hx Blood Transfusions: No Hx Blood Transfusion Reaction: No Hx Bruising: No Hx Cancer: No Hx Chemotherapy: No Hx Cirrhosis: No Hx Gum Bleeding: No Hx Hemophilia: No Hx Hepatitis A: No Hx Hepatitis B: No Hx Hepatitis C: No Hx Human Immunodeficiency Virus (HIV): No Hx Shingles: No Hx Sickle Cell Disease: No Hx Unexplained Bleeding: No - INTEGUMENTARY Hx Dermatological Problems: No - MUSCULOSKELETAL/RHEUMATOLOGICAL Hx Arthritis: Yes - GASTROINTESTINAL Hx Gastrointestinal Disorders: Yes Hx Pancreatitis: Yes - GENITOURINARY/GYNECOLOGICAL Hx Genitourinary Disorders: No - PSYCHIATRIC Hx Psychophysiologic Disorder: No Hx Substance Use: No - SURGICAL HISTORY Hx Surgeries: Yes Hx Appendectomy: Yes Hx Cholecystectomy: Yes - ANESTHESIA Hx Anesthesia: Yes Hx Anesthesia Reactions: No Hx Malignant Hyperthermia: No Has any member of the family had a problem w/ anesthesia?: No Meds Allergies/Adverse Reactions: Allergies Allergy/AdvReac Type Severity Reaction Status Date / Time No Known Allergies Allergy Verified 06/18/18 14:13 - Medications Medications: Current Medications Acetaminophen (Tylenol 325mg Tab) 650 mg PO Q6 PRN PRN Reason: Pain, moderate (4-7) Last Admin: 10/02/18 20:31 Dose: 650 mg Albuterol (Ventolin Hfa 90 Mcg/Actuation (8 G)) 2 puff IH Q6 PRN PRN Reason: Shortness of Breath Amlodipine Besylate (Norvasc) 10 mg PO DAILY [facility] Last Admin: 10/02/18 10:21 Dose: 10 mg Aspirin (Ecotrin) 81 mg PO DAILY [facility] Last Admin: 10/02/18 08:33 Dose: 81 mg Cyanocobalamin (Vitamin B12 1000 Mcg Tab) 1,000 mcg PO DAILY [facility] Last Admin: 10/02/18 08:33 Dose: 1,000 mcg Dextrose (Dextrose 50% Inj) 0 ml IV STAT PRN; Protocol PRN Reason: Hypoglycemia Protocol Dextrose (Glutose 15) 0 gm PO ONCE PRN; Protocol PRN Reason: Hypoglycemia Protocol Famotidine (Pepcid) 20 mg PO BID [facility] Last Admin: 10/02/18 17:17 Dose: 20 mg Ferrous Sulfate (Feosol) 325 mg PO DAILY [facility] Last Admin: 10/02/18 08:33 Dose: 325 mg Glucagon (Glucagen Diagnostic Kit) 0 mg IM STAT PRN; Protocol PRN Reason: Hypoglycemia Protocol Insulin Detemir (Levemir) 10 units SC [facility] Last Admin: 10/02/18 21:29 Dose: 10 units Insulin Human Regular (Humulin R) 0 units SC [facility]; Protocol Last Admin: 10/02/18 21:29 Dose: 2 u Losartan Potassium (Cozaar) 100 mg PO DAILY [facility] Last Admin: 10/02/18 08:34 Dose: 100 mg Nystatin (Nystop Topical Powder) 1 applic TOP TID PRN PRN Reason: Itching / Pruritus Last Admin: 10/02/18 20:32 Dose: 1 applic Results - Vital Signs Recent Vital Signs: Last Vital Signs Temp 98.3 F 10/02/18 20:44 Pulse 74 10/02/18 20:44 Resp 17 10/02/18 20:44 BP 112/47 L 10/02/18 20:44 Pulse Ox 98 10/02/18 20:44 - Labs Result Diagrams: 10/02/18 04:30 10/02/18 04:30 Labs: Laboratory Results - last 24 hr 10/01/18 10/02/18 10/02/18 22:30 04:30 04:30 WBC 6.1 RBC 4.23 Hgb 10.4 L Hct 33.1 L MCV 78.3 L D MCH 24.5 L MCHC 31.3 L RDW 18.6 H Plt Count 196 Sodium 141 Potassium 4.1 Chloride 104 Carbon Dioxide 27 Anion Gap 14 BUN 14 Creatinine 0.8 Est GFR ( Amer) > 60 Est GFR (Non-Af Amer) > 60 POC Glucose (mg/dL) 133 H Random Glucose 154 H Calcium 10.0 10/02/18 10/02/18 10/02/18 07:27 11:12 17:08 WBC RBC Hgb Hct MCV MCH MCHC RDW Plt Count Sodium Potassium Chloride Carbon Dioxide Anion Gap BUN Creatinine Est GFR ( Amer) Est GFR (Non-Af Amer) POC Glucose (mg/dL) 117 H 179 H 215 H Random Glucose Calcium 10/02/18 21:03 WBC RBC Hgb Hct MCV MCH MCHC RDW Plt Count Sodium Potassium Chloride Carbon Dioxide Anion Gap BUN Creatinine Est GFR ( Amer) Est GFR (Non-Af Amer) POC Glucose (mg/dL) 243 H Random Glucose Calcium
--- NOTE | 2018-10-02 23:38 | CON ---
DATE: 10/02/2018 CARDIOLOGY CONSULTATION REASON FOR CONSULTATION: Recurrent syncope. HISTORY OF PRESENT ILLNESS: The patient is an 88-year-old female who is a former smoker and presents because of recurrent falls. The patient stated that she did not sustain major injuries in the past except some facial injury in the past. She has no warning signs prior to her fall. Denies any history of seizure disorder; however, she did report urinary incontinence. The patient does not know for how long she stays unresponsive until she regains her consciousness. The patient is unaware of any history of heart attack in the past and does not recall experiencing palpitation. The patient did report history of stroke many years ago left side of the body. SOCIAL HISTORY: The patient is a former smoker. She lives by herself. Has no children. 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 MEDICATIONS: Cozaar 100 mg once a day, aspirin 81 mg once a day, Norvasc 10 mg once a day, vitamin B12 1 mg p.o. daily, Pepcid 20 mg twice a day. REVIEW OF SYSTEMS: No fecal incontinence. No fever or chills. The patient reports productive cough but no hemoptysis. The patient has been experiencing loss of weight recently. PAST MEDICAL HISTORY: Hypertension, recurrent falls, and history of stroke. PHYSICAL EXAMINATION: GENERAL: The patient is an elderly female who does not appear to be in acute distress. VITAL SIGNS: Blood pressure 141/70, heart rate 77, temperature 98.8, respirations 20. HEENT: Pale conjunctivae. CHEST: Clear. HEART: S1 and S2 are regular. ABDOMEN: Soft. EXTREMITIES: Significant muscle wasting. LABORATORY DATA: Hemoglobin and hematocrit 10.4 and 33.1, white count and platelet count are within normal limit. SMA-7 is within normal limit except glucose of 154. One set of troponin is negative. Lipid profile is within normal limit. TSH level is within normal limit. EKG revealed normal sinus rhythm. Chest x-ray revealed COPD picture with a lung mass involving the left upper lobe originating from the mediastinum in the left cardiac border. Echocardiographic study revealed mild concentric LVH with normal ejection fraction, mild mitral valve stenosis, mitral valve area calculated 1.[address] scan without contrast showed cerebral atrophy compatible with the patient's age. No interval pathology noted. No hemorrhage or mass effect. Chest CT scan was performed, report is still pending. Cervical spine x-ray, no fracture or acute subluxation. Abdomen and pelvic x-ray, no acute fracture or dislocation limits after my evaluation. The official report of the chest x-ray stated entire left upper lobe developing pulmonary infiltrate and/or developing mass, large aortic knob, little eccentric aortic aneurysm. ASSESSMENT: 1. Recurrent falls. 2. Mild anemia. 3. Rule out saccular aortic aneurysm versus a lung or mediastinal mass. 4. Chronic obstructive lung disease. 5. Systemic hypertension. RECOMMENDATIONS: Continue Cozaar 100 mg once a day, aspirin 81 mg once a day, Feosol one tablet once a day, vitamin B12 1 mg orally daily, Norvasc 10 mg once a day. I will follow up the chest CT scan report that was performed today. Reyes Awad MD
[2018-10-03 05:44] LABS: HEMOGLOBIN 10.8 g/dL (12.0-16.0); MEAN CELL VOLUME 78.7 fl (81.0-99.0); MEAN CORPUSCULAR HEMOGLOBIN 24.5 pg (27.0-31.0); MEAN CORPUSCULAR HGB CONC 31.2 g/dL (33.0-37.0); RBC 4.4 Mil/uL (3.80-5.20); RED CELL DISTRIBUTION WIDTH 18.7 % (11.5-14.5); WHITE BLOOD COUNT 6.3 K/uL (4.8-10.8)
[2018-10-03 05:54] LABS: BLOOD UREA NITROGEN 16 mg/dl (7-17); CALCIUM 9.9 mg/dL (8.4-10.2); GFR NON-AFRICAN AMERICAN 59
[2018-10-03] MEDS: Insulin Regular 100 units/ml SC SCH ×2 (08:54→12:13)
[2018-10-03 12:38] VITALS: BP 100/45; RESP 12; TEMP 97.4
--- NOTE | 2018-10-03 13:29 | CP.PCM.DIS ---
Provider - Provider Date of Admission: 10/02/18 14:04 Attending physician: Anselmo Hall Primary care physician: Keshav Samuels Consults: 10/01/18 13:48 Nursing Referral for Wound Care Routine Comment: Physician Instructions: Reason For Exam: protocol 10/02/18 11:35 Cardiology Consult Routine Comment: Consulting Provider: Reyes Awad Consulting Physician: Reyes Awad Reason for Consult: Syncope, Fall 10/02/18 12:10 Pulmonology Consult Routine Comment: Consulting Provider: León Pina Consulting Physician: León Pina Reason for Consult: left sided lung mass Time Spent in preparation of Discharge (in minutes): 20 Diagnosis - Discharge Diagnosis (1) Assistance needed for ambulation and movement Status: Acute (2) Hip pain Status: Acute (3) Fall at home Status: Acute (4) Chronic anemia Status: Chronic (5) IDDM (insulin dependent diabetes mellitus) Status: Chronic (6) Lung mass Status: Acute (7) COPD (chronic obstructive pulmonary disease) Status: Acute Hospital Course - Lab Results Lab Results: Micro Results 10/01/18 18:51 Nose MRSA Culture (Admit) - Final MRSA NOT DETECTED 10/01/18 04:01 Urine,Clean Catch Urine Culture - Final No Growth (<1,000 CFU/ML) Most Recent Lab Values WBC 6.3 K/uL (4.8-10.8) 10/03/18 04:25 RBC 4.40 Mil/uL (3.80-5.20) 10/03/18 04:25 Hgb 10.8 g/dL (12.0-16.0) L 10/03/18 04:25 Hct 34.7 % (34.0-47.0) 10/03/18 04:25 MCV 78.7 fl (81.0-99.0) L 10/03/18 04:25 MCH 24.5 pg (27.0-31.0) L 10/03/18 04:25 MCHC 31.2 g/dL (33.0-37.0) L 10/03/18 04:25 RDW 18.7 % (11.5-14.5) H 10/03/18 04:25 Plt Count 199 K/uL (130-400) 10/03/18 04:25 MPV 10.3 fl (7.2-11.7) 10/01/18 04:01 Neut % (Auto) 73.4 % (50.0-75.0) 10/01/18 04:01 Lymph % (Auto) 15.6 % (20.0-40.0) L 10/01/18 04:01 [place] % (Auto) 8.5 % (0.0-10.0) 10/01/18 04:01 Eos % (Auto) 2.3 % (0.0-4.0) 10/01/18 04:01 Baso % (Auto) 0.2 % (0.0-2.0) 10/01/18 04:01 Neut # (Auto) 6.4 K/uL (1.8-7.0) 10/01/18 04:01 Lymph # (Auto) 1.4 K/uL (1.0-4.3) 10/01/18 04:01 Tama # (Auto) 0.7 K/uL (0.0-0.8) 10/01/18 04:01 Eos # (Auto) 0.2 K/uL (0.0-0.7) 10/01/18 04:01 Baso # (Auto) 0.0 K/uL (0.0-0.2) 10/01/18 04:01 Sodium 141 mmol/l (132-148) 10/03/18 04:25 Potassium 3.7 MMOL/L (3.6-5.0) 10/03/18 04:25 Chloride 104 mmol/L (98-107) 10/03/18 04:25 Carbon Dioxide 27 mmol/L (22-30) 10/03/18 04:25 Anion Gap 14 (10-20) 10/03/18 04:25 BUN 16 mg/dl (7-17) 10/03/18 04:25 Creatinine 0.9 mg/dl (0.7-1.2) 10/03/18 04:25 Est GFR ( Amer) > 60 10/03/18 04:25 Est GFR (Non-Af Amer) 59 10/03/18 04:25 POC Glucose (mg/dL) 192 mg/dL (65-110) H 10/03/18 11:27 Random Glucose 90 mg/dL (65-105) 10/03/18 04:25 Calcium 9.9 mg/dL (8.4-10.2) 10/03/18 04:25 Ferritin 7.8 ng/Ml (11.1-264.0) L 10/01/18 06:04 Total Bilirubin 0.3 mg/dl (0.2-1.3) 10/01/18 04:01 AST 25 U/L (14-36) 10/01/18 04:01 ALT 18 U/L (9-52) 10/01/18 04:01 Alkaline Phosphatase 94 U/L (38-126) 10/01/18 04:01 Troponin I < 0.0120 ng/mL (0.00-0.120) 10/01/18 04:01 Total Protein 7.4 G/DL (6.3-8.2) 10/01/18 04:01 Albumin 3.9 g/dL (3.5-5.0) 10/01/18 04:01 Globulin 3.5 gm/dL (2.2-3.9) 10/01/18 04:01 Albumin/Globulin Ratio 1.1 (1.0-2.1) 10/01/18 04:01 Triglycerides 79 mg/DL (0-149) D 10/01/18 06:04 Cholesterol 125 mg/dL (0-199) 10/01/18 06:04 LDL Cholesterol Direct 46 mg/dL (0-129) 10/01/18 06:04 HDL Cholesterol 66 MG/DL (30-70) 10/01/18 06:04 Vitamin B12 282 pg/mL (239-931) 10/01/18 06:04 Folate > 20.0 ng/mL 10/01/18 06:04 TSH 3rd Generation 0.61 mIU/ML (0.46-4.68) 10/01/18 06:04 Urine Color Yellow (YELLOW) 10/01/18 04:01 Urine Clarity Clear (Clear) 10/01/18 04:01 Urine pH 6.0 (5.0-8.0) 10/01/18 04:01 Ur Specific [place] 1.010 (1.003-1.030) 10/01/18 04:01 Urine Protein 100 mg/dL (NEGATIVE) 10/01/18 04:01 Urine Glucose (UA) Neg mg/dL (NEGATIVE) 10/01/18 04:01 Urine Ketones Negative mg/dL (NEGATIVE) 10/01/18 04:01 Urine Blood Small (NEGATIVE) 10/01/18 04:01 Urine Nitrate Negative (NEGATIVE) 10/01/18 04:01 Urine Bilirubin Negative (NEGATIVE) 10/01/18 04:01 Urine Urobilinogen 0.2-1.0 mg/dL (0.2-1.0) 10/01/18 04:01 Ur Leukocyte Esterase Trace Lisbet/uL (Negative) 10/01/18 04:01 Urine RBC (Auto) 5 /hpf (0-3) H 10/01/18 04:01 Urine Microscopic WBC 4 /hpf (0-5) 10/01/18 04:01 Ur Squamous Epith Cells < 1 /hpf (0-5) 10/01/18 04:01 - Hospital Course Hospital Course: 78 yo F with pmhx of HTN, IDDM, COPD, GERD, CVA, chronic back pain admitted due to weakness which led to fall after her knees "gave out". Ct head showed age appropriate changes, mild chronic microvascular disease, and no acute pathology, CT cervical spine showed spondylosis, multilevel facet joint arthropathy, no acute bone pathology. XR hip/pelvis showed no acute osseous abnormality, and CXR showed suspicious lung mass as well as aortic saccular aneyurism. CT chest also showed mass and aneyurism. Results were discussed with patient and possibility of lung malignancy; patient stated she did not wish to pursue any treatment like chemo or radiation in case she is diagnosed with cancer, but would like to know the diagnosis. Pulmonary consulted and case discussed w/ Dr. Pian; scheduled to have a PET Ct scan as outpatient for further work up. Evaluated by cardiology: not a candidate for intervention of saccular aortic aneurysm given its size and pt's other significant medical problems and co-morbidities. Evaluated by PT- recommended subacute rehab; pt cannot ambulate on her own. Pt seen today at bedside; reports feeling tired and weak. No dizziness, shortness of breath, chest pain; tolerating PO diet, no issues voiding/stooling. Optimistic about going to rehab for PT. Stable for d/c to subcute rehab. Discharge Exam - Head Exam Head Exam: NORMAL INSPECTION - Eye Exam Eye Exam: Normal appearance - ENT Exam ENT Exam: Mucous Membranes Dry - Respiratory Exam Respiratory Exam: Clear to PA & Lateral, NORMAL BREATHING PATTERN - Cardiovascular Exam Cardiovascular Exam: REGULAR RHYTHM, +S1, +S2 - GI/Abdominal Exam GI & Abdominal Exam: Soft - Extremities Exam Additional comments: No edema, no calf tenderness - Neurological Exam Neurological exam: Alert, Oriented x3 - Skin Skin Exam: Dry, Warm Discharge Plan - Follow Up Plan Condition: GOOD Disposition: REHAB FACILITY/REHAB UNIT Additional Instructions: please follow up with Dr. Day and pulm Dr. Pina after discharge from [facility]. Referrals: León Pina MD [Staff Provider] -
--- NOTE | 2018-10-03 14:54 | PN ---
DATE: 10/03/2018 SUBJECTIVE: The patient is complaining of generalized body aches. She denies any specific leg pain or diaphoresis. PHYSICAL EXAMINATION: VITAL SIGNS: Blood pressure 143/65, heart rate 90, temperature 98.6, respiration 18. HEENT: Normocephalic. CHEST: Clear. HEART: S1, S2 regular. EXTREMITIES: No edema. LABORATORY DATA: Hemoglobin and hematocrit 10.8 and 34.7. White count and platelet count are within normal limits. Today, SMA-7 is within normal limits. Chest CT scan, previous saccular aneurysm on the aortic arch/descending thoracic aorta mildly increased in size compared to 12/2015, the dimensions are 4.8 cm in the anteroposterior diameter and it measured before 4.2 cm more than 2 years ago. Irregular left upper lobe mass suspicious for malignancy. ASSESSMENT: 1. Recurrent falls. 2. 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 3. Left upper lung lobe mass. 4. Chronic obstructive lung disease. RECOMMENDATIONS: Continue Cozaar 100 mg once a day, aspirin 81 mg once a day, discontinue Norvasc and start Lopressor at 25 mg twice a day, hold if the patient is actively wheezing. The patient is not a candidate for surgical intervention on the saccular aortic aneurysm given the size and the fact that the patient has multiple other significant medical problems including the left upper lobe lung mass suspicious for malignancy. Reyes Awad MD
[2018-10-04 22:35] VITALS: PULSE 78; O2SAT 99
== END 2018-10-03 15:46 | DRG 605 ==
LOC: H.ER 23:58 → H.ERHOLD 10-01 04:27 → H.ICU/CCU 10-01 10:39 → OBSVTOIN 10-02 14:04
PROVIDERS: ADMIT Internal Medicine; ATTEND Internal Medicine
DX: S70.02XA Contusion of left hip, initial encounter (principal); I69.354 Hemiplegia and hemiparesis following cerebral infarction affecting left non-dominant side; G89.29 Other chronic pain; M25.552 Pain in left hip; R29.6 Repeated falls; R26.81 Unsteadiness on feet; R91.8 Other nonspecific abnormal finding of lung field; I71.2 Thoracic aortic aneurysm, without rupture; M54.30 Sciatica, unspecified side; M47.892 Other spondylosis, cervical region; D64.9 Anemia, unspecified; J43.9 Emphysema, unspecified; I10 Essential (primary) hypertension; E11.9 Type 2 diabetes mellitus without complications; E78.00 Pure hypercholesterolemia, unspecified; K21.9 Gastro-esophageal reflux disease without esophagitis; E78.5 Hyperlipidemia, unspecified; Z60.2 Problems related to living alone; W18.30XA Fall on same level, unspecified, initial encounter; F17.210 Nicotine dependence, cigarettes, uncomplicated; Z75.1 Person awaiting admission to adequate facility elsewhere; Z79.4 Long term (current) use of insulin; Z87.01 Personal history of pneumonia (recurrent); Y92.009 Unspecified place in unspecified non-institutional (private) residence as the place of occurrence of the external cause

== ENCOUNTER 2018-10-11 21:47 | Emergency (ER) | payer MEDICARE, OTHER ==
[2018-10-11 21:47] VITALS: BMI 20.1
[2018-10-11 21:53] VITALS: TEMP 98.3
--- NOTE | 2018-10-11 23:52 | ED PDOC ---
HPI: Trauma/Fall - HPI Time Seen by Provider: 10/11/18 22:06 Chief Complaint (Nursing): Trauma Chief Complaint (Provider): Trauma History Per: Patient History/Exam Limitations: no limitations Injury Occurred (Timing): Just Before Arrival (in the half-way) Additional Complaint(s): 88 y/o female with history of diabetes, COPD, HTN, and frequent falls presents to the ED for evaluation of trauma s/p fall onset prior to arrival. Patient was referred to the ED from half-way. Patient states she doesn't remember what happened and is complaining of hitting her face as well as chronic lower back pain. Patient denies chest pain, shortness of breath, and headache. Past Medical History Reviewed: Historical Data, Nursing Documentation, Vital Signs Vital Signs: Last Vital Signs Temp 98.3 F 10/11/18 21:49 Pulse 83 10/11/18 21:49 Resp 18 10/11/18 21:49 BP 179/84 H 10/11/18 21:49 Pulse Ox 97 10/11/18 21:49 - Medical History PMH: Anemia, Arthritis, Back Problems, Bronchitis, COPD, CVA (w/residual left leg weakness), Diabetes (type II), Emphysema, HTN, Hypercholesterolemia, Hyperlipidemia, Pancreatitis, Peripheral Edema, Pneumonia Denies: Alzheimer's Disease, Asthma, Atrial Fibrillation, CAD, Cardia A rrhythmia, CHF, Dementia, HIV, Hyperthyroidism, Hypothyroidism, Migraine, Mitral Valve Prolapse, Multiple Sclerosis, Pulmonary Embolism, Chronic Kidney Disease, Seizures, Sickle Cell Disease, Sleep Apnea, TIA - Surgical History Surgical History: Appendectomy, Back Surgery (multiple back surgeries), Cholecystectomy Denies: Pacemaker - Family History Family History: States: Unknown Family Hx - Home Medications Home Medications: Ambulatory Orders Medication Instructions Recorded Albuterol HFA [Ventolin HFA 90 2 puff IH Q6 PRN 10/02/17 mcg/actuation (8 g)] Aspirin [Ecotrin] 81 mg PO DAILY 10/02/17 Losartan Potassium 100 mg PO DAILY #30 tablet 06/19/18 Acetaminophen [Tylenol 325mg tab] 650 mg PO Q6 PRN tab 10/03/18 Cyanocobalamin [Vitamin B12 1000 1,000 mcg PO DAILY tab 10/03/18 mcg Tab] Famotidine [Pepcid] 20 mg PO BID tab 10/03/18 Ferrous Sulfate [Feosol] 325 mg PO DAILY tab 10/03/18 Insulin Detemir [Levemir] 10 units SQ HS #0 10/03/18 Nystatin [Nystop Topical Powder] 1 applic TOP TID PRN bottle 10/03/18 - Allergies Allergies/Adverse Reactions: Allergies Allergy/AdvReac Type Severity Reaction Status Date / Time No Known Allergies Allergy Verified 10/11/18 21:49 Review of Systems ROS Statement: Except As Marked, All Systems Reviewed And Found Negative Cardiovascular: Negative for: Chest Pain Respiratory: Negative for: Shortness of Breath Musculoskeletal: Positive for: Back Pain (chronic lower), Other (Face pain s/p fall) Neurological: Negative for: Headache Physical Exam - Reviewed Nursing Documentation Reviewed: Yes Vital Signs Reviewed: Yes - Physical Exam Appears: Positive for: Well, Non-toxic, No Acute Distress Head Exam: Positive for: NORMOCEPHALIC. Negative for: ATRAUMATIC (ecchymosis and contusions to forehead; no septal hematoma) Skin: Positive for: Normal Color, Warm, DRY Eye Exam: Positive for: EOMI, Normal appearance, PERRL ENT: Positive for: Other (Nasal swelling) Neck: Positive for: Normal, Painless ROM Cardiovascular/Chest: Positive for: Regular Rate, Rhythm. Negative for: Murmur Respiratory: Positive for: Normal Breath Sounds. Negative for: Respiratory Distress Back: Positive for: Normal Inspection (no step off; no irregularities). Negative for: Vertebral Tenderness (midline tenderness) Extremity: Positive for: Normal ROM. Negative for: Tenderness (Hip), Pedal Edema, Deformity Neurologic/Psych: Positive for: Alert, Oriented (x3). Negative for: Motor/Sensory Deficits - Laboratory Results Result Diagrams: 10/12/18 00:03 10/12/18 00:03 - ECG O2 Sat by Pulse Oximetry: 97 (RA) Pulse Ox Interpretation: Normal Medical Decision Making Medical Decision Making: Time: 22:26 Initial Impression: 88 y/o female with fall. Chart review shows patient has frequent falls. Will r/o acute trauma or lab abnormalities with blood work Initial Plan: * CT Cervical Spine * CT Head * CT Maxillo * EKG * BMP * Troponin * CBC w/ diff * CXR * Tylenol 650 mg * RAD Pelvis 00:34 CT Maxillo FINDINGS: BONES: No acute fracture or aggressive appearing osseous lesion. The mandible is intact. SOFT TISSUES: The soft tissues are unremarkable. SINUSES: The sinuses are clear. ORBITS: The orbits are normal. No retrobulbar hematoma or mass. IMPRESSION: Unremarkable maxillofacial CT. 00:35 CT Head FINDINGS: BRAIN Chronic periventricular and subcortical microvascular disease is seen. VENTRICLES: There is generalized parenchymal atrophy noted as demonstrated by symmetrical dilatation of ventricles and sulci. ORBITS: The orbits are unremarkable. SINUSES AND MASTOIDS: The paranasal sinuses and mastoid air cells are clear. BONES: No fracture. SOFT TISSUES: Unremarkable. MISCELLANEOUS: No acute intracranial pathology. IMPRESSION: 1. There is generalized parenchymal atrophy noted as demonstrated by symmetrical dilatation of ventricles and sulci. 2. Chronic periventricular and subcortical microvascular disease is seen. 3. No acute intracranial pathology. 00:36 CT C Spine Findings: There are diffuse spondylotic changes. Findings are demonstrated by disc space narrowing, osteophyte formation and degenerative endplate changes. Facet joint arthropathy is noted. No fracture or dislocation is seen. No aggressive bone lesion is noted. Moderate multilevel degenerative disc disease more prominent at C5-6. Impression: Spondylosis. Multilevel facet joint arthropathy. No acute bone pathology. Patient has normal labs, normal workup, no signs of fracture No indication for admission at this time Will send back to half-way Scribe Attestation: Documented by Germain Ponce acting as a scribe for Mau Tran MD. Provider Scribe Attestation: All medical record entries made by the Scribe were at my direction and personally dictated by me. I have reviewed the chart and agree that the record accurately reflects my personal performance of the history, physical exam, [facility] decision making, and the department course for this patient. I have also personally directed, reviewed, and agree with the discharge instructions and disposition. Disposition - Clinical Impression Clinical Impression: Contusion - Patient ED Disposition Is Patient to be Admitted: No - Disposition Referrals: Kris Acevedo MD [Family Provider] - Disposition Time: 01:00 Condition: STABLE Instructions: Contusion (DC) Forms: [facility] (Indonesian)
[2018-10-12 00:21] LABS: BASO % 0.5 % (0.0-2.0); EOS # 0.2 K/uL (0.0-0.7); EOS % 3.1 % (0.0-4.0); HEMOGLOBIN 9.9 g/dL (12.0-16.0); LYMPH # 1.4 K/uL (1.0-4.3); LYMPH % 21.1 % (20.0-40.0); MEAN CELL VOLUME 79.6 fl (81.0-99.0); MEAN CORPUSCULAR HEMOGLOBIN 24.8 pg (27.0-31.0); MEAN CORPUSCULAR HGB CONC 31.2 g/dL (33.0-37.0); MONO # 0.5 K/uL (0.0-0.8); MONO % 8.4 % (0.0-10.0); NEUT # 4.3 K/uL (1.8-7.0); NEUT % 66.9 % (50.0-75.0); RBC 3.99 Mil/uL (3.80-5.20); RED CELL DISTRIBUTION WIDTH 18.6 % (11.5-14.5); WHITE BLOOD COUNT 6.4 K/uL (4.8-10.8)
[2018-10-12 00:53] LABS: BLOOD UREA NITROGEN 20 mg/dl (7-17); CALCIUM 9.6 mg/dL (8.4-10.2); GFR NON-AFRICAN AMERICAN > 60
[2018-10-12 04:07] VITALS: BP 146/82; PULSE 70; RESP 17
[2018-10-12 04:37] VITALS: O2SAT 97
--- NOTE | 2018-10-12 09:53 | RAD ---
Date of service: 10/11/2018 PROCEDURE: Radiographs of the pelvis. HISTORY: fall COMPARISON: None. FINDINGS: BONES: Pelvic Bones: No fracture destructive bony lesion appreciated throughout the pelvic ring. Pubic symphysis is intact swells the pubic bones and the iliac bones. Innominate bones appear symmetric and unremarkable. There is gross degenerative joint disease at the bilateral hip joints and moderate degenerative joint disease at the bilateral sacroiliac joints. Local soft tissues reflect vascular calcifications and post spinal fusion hardware is identified. Diffuse osteopenia suggests osteoporosis. Hips: See above. JOINTS: Sacroiliac Joints: As above. Pubic Symphysis: As above. OTHER FINDINGS: None. IMPRESSION: Diffuse osteopenia suggests osteoporosis. No displaced fracture identified throughout the pelvic ring with the pubic symphysis intact. Note is made of lumbar spinal fusion hardware in situ.
--- NOTE | 2018-10-12 09:58 | RAD ---
Date of service: 10/11/2018 HISTORY: fall COMPARISON: Contrast chest CT 01/15/2016. chest radiograph 10/01/2018. FINDINGS: LUNGS: Mass again identified left pulmonary upper lung zone without interval alveolitis bilaterally. PLEURA: No significant pleural effusion identified, no pneumothorax apparent. CARDIOVASCULAR: Calcific atherosclerotic thoracic aortic changes are identified with left hilar mass representing thoracic aortic arch aneurysm. Normal cardiac size. No pulmonary vascular congestion. OSSEOUS STRUCTURES: No significant abnormalities. VISUALIZED UPPER ABDOMEN: Normal. OTHER FINDINGS: None. IMPRESSION: Stable faint patchy density left upper lobe representing mass demonstrated prior chest CT 10/01/2018. Large thoracic aortic arch aneurysm reiterated.
--- NOTE | 2018-10-12 15:23 | CT ---
Date of service: 10/11/2018 PROCEDURE: CT MAXILLOFACIAL BONES WITHOUT CONTRAST HISTORY: fall with head trauma COMPARISON: None available. TECHNIQUE: Contiguous axial CT images of the maxillofacial bones were obtained. Coronal and sagittal reformats were generated. Radiation dose: Total exam DLP = 807.42 mGy-cm. This CT exam was performed using one or more of the following dose reduction techniques: Automated exposure control, adjustment of the mA and/or kV according to patient size, and/or use of iterative reconstruction technique. FINDINGS: NASAL BONES: Unremarkable. ORBITS: Unremarkable. PARANASAL SINUSES/ MASTOIDS: Clear. MAXILLA: Unremarkable. MANDIBLE/ TEMPOROMANDIBULAR JOINTS: Unremarkable. SKULL BASE: Unremarkable. TEMPORAL BONES: Middle ears and mastoid grossly unremarkable. OTHER FINDINGS: None. IMPRESSION: Unremarkable non contrast enhanced CT of the maxillofacial bones.
--- NOTE | 2018-10-12 15:25 | CT ---
Date of service: 10/11/2018 PROCEDURE: CT HEAD WITHOUT CONTRAST. HISTORY: fall with head trauma COMPARISON: Noncontrast head CT 10/01/2018. TECHNIQUE: Axial computed tomography images were obtained through the head/brain without intravenous contrast. Radiation dose: Total exam DLP = 756.87 mGy-cm. This CT exam was performed using one or more of the following dose reduction techniques: Automated exposure control, adjustment of the mA and/or kV according to patient size, and/or use of iterative reconstruction technique. FINDINGS: HEMORRHAGE: No intracranial hemorrhage. BRAIN: Good corticomedullary differentiation is seen. Reiterated diffuse cerebral atrophy and chronic microangiopathy. No suspicious extra-axial fluid collection is identified and the midline brain anatomy appears grossly nonfocal as imaged. No mass effect identified. VENTRICLES: Unremarkable. No hydrocephalus. CALVARIUM: Unremarkable. PARANASAL SINUSES: Unremarkable as visualized. No significant inflammatory changes. MASTOID AIR CELLS: Unremarkable as visualized. No inflammatory changes. OTHER FINDINGS: None. IMPRESSION: Stable age related neuro degenerative changes without acute intracranial findings or fracture identified. Concordant preliminary report from [facility], 10/12/2018 12:35 a.m..
--- NOTE | 2018-10-12 15:31 | CT ---
Date of service: 10/11/2018 PROCEDURE: CT Cervical Spine without contrast HISTORY: fall with head trauma COMPARISON: None available. TECHNIQUE: Axial computed tomography images were obtained of the cervical spine without the use of intravenous contrast. Coronal and sagittal reformatted images were created and reviewed. Radiation dose: Total exam DLP = 295.42 mGy-cm. This CT exam was performed using one or more of the following dose reduction techniques: Automated exposure control, adjustment of the mA and/or kV according to patient size, and/or use of iterative reconstruction technique. FINDINGS: VERTEBRAE: Minimal spondylolisthesis C7 anterior to T1 on a degenerative basis no fracture identified. Curvature otherwise normal. Gross multilevel cervical spondylosis. No destructive bony lesion appreciable. C1-2 articulation and craniocervical junction appear normal. DISCS/SPINAL CANAL/NEURAL FORAMINA: Gross circumferential disc osteophyte is identified more posteriorly than anteriorly at C5-6 resulting in a moderate central canal stenosis with moderate bilateral neural foraminal stenoses also identified. Multilevel degenerative neural foraminal stenoses are seen throughout the mid cervical spine as well. No severe spinal stenosis throughout. PARASPINAL SOFT TISSUES: Unremarkable. OTHER FINDINGS: None. IMPRESSION: No fracture appreciated throughout the exam although degenerative minimal grade 1 spondylolisthesis identified at C7-T1 without stenosis. Moderate degenerative central stenosis C5-6 with variable multilevel neural foraminal bony degenerative stenoses present. Concordant preliminary report from [facility], 10/12/2018 12:36 a.m..
--- NOTE | 2018-10-12 22:35 | CARD ---
APPROVED REPORT Date of service: 10/11/2018 EKG Measurement Heart [id number] <Conclusion> Normal sinus rhythm Normal ECG
== END 2018-10-12 03:36 | disposition home or self-care (01) ==
LOC: H.ER 21:47
DX: S00.83XA Contusion of other part of head, initial encounter (principal); W19.XXXA Unspecified fall, initial encounter; Y92.89 Other specified places as the place of occurrence of the external cause; E11.9 Type 2 diabetes mellitus without complications; R29.6 Repeated falls; Z79.4 Long term (current) use of insulin; Z79.82 Long term (current) use of aspirin

== ENCOUNTER 2018-11-23 21:49 | Emergency (ER) | payer MEDICARE, OTHER ==
[2018-11-23 21:50] VITALS: BMI 20.1
[2018-11-23 21:58] VITALS: RESP 18; O2SAT 98
[2018-11-23] MEDS ORDERED: Sodium Chloride 0.9% 1,000 ML IV STA (22:19)
--- NOTE | 2018-11-23 22:44 | ED PDOC ---
Hyperglycemia/Hypoglycemia Time Seen by Provider: 11/23/18 22:03 Chief Complaint (Nursing): High Blood Sugar Chief Complaint (Provider): High Blood Sugar History Per: Patient History/Exam Limitations: no limitations Onset/Duration Of Symptoms: Days (x1) Current Symptoms Are (Timing): Still Present : The patient does not have any of the infectious symptoms listed except for those marked. Additional Complaint(s): 88 year old female with extensive pmhx including diabetes presents to the ED for evaluation of elevated blood sugar in the 400s for the past day, which concerned her. She denies associated symptoms such as dizziness, headache, nausea, vomiting, abdominal pain, chest pain, and shortness of breath, but does report generalized weakness. Patient notes that she eats a normal diabetic diet, and has not made any recent changes to it. PMD: Kris Acevedo Past Medical History Reviewed: Historical Data, Nursing Documentation, Vital Signs Vital Signs: Last Vital Signs Temp 98.1 F 11/23/18 21:55 Pulse 60 11/23/18 21:55 Resp 18 11/23/18 21:55 BP 180/63 H 11/23/18 21:55 Pulse Ox 98 11/23/18 21:55 - Medical History PMH: Anemia, Arthritis, Back Problems, Bronchitis, COPD, CVA (w/residual left leg weakness), Diabetes (type II), Emphysema, HTN, Hypercholesterolemia, Hyperlipidemia, Pancreatitis, Peripheral Edema, Pneumonia Denies: Alzheimer's Disease, Asthma, Atrial Fibrillation, CAD, Cardia Arrhythmia, CHF, Dementia, HIV, Hyperthyroidism, Hypothyroidism, Migraine, Mitral Valve Prolapse, Multiple Sclerosis, Pulmonary Embolism, Chronic Kidney Disease, Seizures, Sickle Cell Disease, Sleep Apnea, TIA - Surgical History Surgical History: Appendectomy, Back Surgery (multiple back surgeries), Cholecystectomy Denies: Pacemaker - Family History Family History: States: Unknown Family Hx - Social History Current smoker - smoking cessation education provided: No Alcohol: None Drugs: Denies - Home Medications Home Medications: Ambulatory Orders Medication Instructions Recorded Insulin Detemir [Levemir] 10 units SQ HS #0 10/03/18 Aspirin [Aspirin Chewable] 81 mg PO DAILY 11/23/18 Atorvastatin Calcium 20 mg PO DAILY 11/23/18 Carvedilol [Coreg] 12.5 mg PO BID 11/23/18 Losartan Potassium 100 mg PO DAILY 11/23/18 Naproxen Sodium [Naproxen Sodium 1 tab PO BID PRN 11/23/18 Ds] Pioglitazone [Actos] 30 mg PO DAILY 11/23/18 Zolpidem [Ambien] 10 mg PO HS 11/23/18 - Allergies Allergies/Adverse Reactions: Allergies Allergy/AdvReac Type Severity Reaction Status Date / Time No Known Allergies Allergy Verified 11/23/18 21:55 Review of Systems ROS Statement: Except As Marked, All Systems Reviewed And Found Negative Constitutional: Positive for: Weakness (generalized), Other (elevated blood sugar) Cardiovascular: Negative for: Chest Pain Respiratory: Negative for: Shortness of Breath Gastrointestinal: Negative for: Nausea, Vomiting, Abdominal Pain, Diarrhea Neurological: Negative for: Headache, Dizziness Physical Exam - Reviewed Nursing Documentation Reviewed: Yes Vital Signs Reviewed: Yes - Physical Exam Appears: Positive for: No Acute Distress Head Exam: Positive for: ATRAUMATIC, NORMAL INSPECTION, NORMOCEPHALIC Skin: Positive for: Normal Color, Warm, DRY Eye Exam: Positive for: EOMI, Normal appearance, PERRL ENT: Positive for: Normal ENT Inspection Neck: Positive for: Normal, Painless ROM, Supple Cardiovascular/Chest: Positive for: Regular Rate, Rhythm Respiratory: Positive for: Normal Breath Sounds. Negative for: Accessory Muscle Use, Respiratory Distress Gastrointestinal/Abdominal: Positive for: Normal Exam, Soft. Negative for: Tenderness Extremity: Positive for: Normal ROM (all extremities) Neurologic/Psych: Positive for: Alert, Oriented (x3). Negative for: Motor/Sensory Deficits - Laboratory Results Result Diagrams: 11/23/18 22:30 11/23/18 22:30 - ECG O2 Sat by Pulse Oximetry: 98 (RA) Pulse Ox Interpretation: Normal Medical Decision Making Medical Decision Making: Time: 2217 Initial Impression: 88 year old female with uncontrolled diabetes Initial Plan: --CMP --U-dip --CBC with differential --Normal saline IV --Accucheck --Urinalysis 01:45 Labs reviewed no clinically significant abnormalities with exception of elevated blood glucose. Patient glucose levels improved in ED and is stable for discharge. Diagnosis is hyperglycemia and diabetes. Scribe Attestation: Documented by Merari Desouza and Germain Ponce, acting as a scribe for Tacos Larson MD. Provider Scribe Attestation: All medical record entries made by the Scribe were at my direction and personally dictated by me. I have reviewed the chart and agree that the record accurately reflects my personal performance of the history, physical exam, medical decision making, and the department course for this patient. I have also personally directed, reviewed, and agree with the discharge instructions and disposition. Disposition - Clinical Impression Clinical Impression: Hyperglycemia - Patient ED Disposition Is Patient to be Admitted: No - Disposition Disposition: Routine/Home Disposition Time: 01:45 Condition: STABLE Additional Instructions: LEELEE GALAVIZ, thank you for letting us take care of you today. Your provider was Tacos Larson MD and you were treated for DIABETIC/ HIGH GLUCOSE. The emergency medical care you received today was directed at your acute symptoms. If you were prescribed any medication, please fill it and take a s directed. It may take several days for your symptoms to resolve. Return to the Emergency Department if your symptoms worsen, do not improve, or if you have any other problems. Please contact your doctor or call one of the physicians/clinics you have been referred to that are listed on the Patient Visit Information form that is included in your discharge packet. Bring any paperwork you were given at discharge with you along with any medications you are taking to your follow up visit. Our treatment cannot replace ongoing medical care by a primary care provider outside of the emergency department. Thank you for allowing the [facility] team to be part of your care today. If you had an X-Ray or CT scan: A Radiologist will review the ED reading if any change in treatment is needed we will contact you. If you had a blood, urine, or wound culture: It will take several days for the results, if any change in treatment is needed we will contact you. If you had an STI test: It will take 48 hours for the results. Please call after 1 week if you have not heard back. Instructions: Hyperglycemia, Adult, Diabetes and Diet Forms: [facility] [facility] (Y[place]i)
[2018-11-24 00:25] LABS: SQUAMOUS EPITHIAL < 1 /hpf (0-5); URINE BILIRUBIN NEGATIVE (NEGATIVE); URINE BLOOD NEGATIVE (NEGATIVE); URINE CLARITY CLEAR (Clear); URINE COLOR YELLOW (YELLOW); URINE GLUCOSE (UA) >=500 mg/dL (NEGATIVE); URINE HYALINE CAST 0-2 /hpf (0-2); URINE LEUKOCYTE ESTERASE NEG Leu/uL (Negative); URINE PROTEIN 30 mg/dL (NEGATIVE); URINE UROBILINOGEN 0.2-1.0 mg/dL (0.2-1.0)
[2018-11-24 00:26] LABS: ALBUMIN 3.4 g/dL (3.5-5.0); ALT/SGPT 18 U/L (9-52); AST/SGOT 28 U/L (14-36); BLOOD UREA NITROGEN 24 mg/dl (7-17); CALCIUM 9.2 mg/dL (8.4-10.2); GFR NON-AFRICAN AMERICAN > 60
[2018-11-24 00:28] LABS: BASO # 0.1 K/uL (0.0-0.2); BASO % 0.8 % (0.0-2.0); EOS # 0.6 K/uL (0.0-0.7); EOS % 8.1 % (0.0-4.0); LYMPH # 1.4 K/uL (1.0-4.3); LYMPH % 20.8 % (20.0-40.0); MONO # 0.7 K/uL (0.0-0.8); MONO % 9.4 % (0.0-10.0); NEUT # 4.2 K/uL (1.8-7.0); NEUT % 60.9 % (50.0-75.0); NRBC % 0.1 % (0.0-0.0); RBC 3.59 Mil/uL (3.80-5.20); RED CELL DISTRIBUTION WIDTH 18.2 % (11.5-14.5); WHITE BLOOD COUNT 6.9 K/uL (4.8-10.8)
[2018-11-24 00:29] LABS: HEMOGLOBIN 8.8 g/dL (12.0-16.0); MEAN CELL VOLUME 78.9 fl (81.0-99.0); MEAN CORPUSCULAR HEMOGLOBIN 24.4 pg (27.0-31.0)
[2018-11-24 07:11] VITALS: BP 126/76; PULSE 82; TEMP 98.6
== END 2018-11-24 06:15 | disposition home or self-care (01) ==
LOC: H.ER 21:49
DX: E11.65 Type 2 diabetes mellitus with hyperglycemia (principal); Z79.4 Long term (current) use of insulin; I10 Essential (primary) hypertension; J44.9 Chronic obstructive pulmonary disease, unspecified; Z79.82 Long term (current) use of aspirin; Z79.899 Other long term (current) drug therapy; E78.00 Pure hypercholesterolemia, unspecified
CPT/HCPCS: 80053; 81003; 82948; 85025; 99284; J7030